=== PATIENT | female | born 1970 | race Caucasian/White ===

== ENCOUNTER 2017-04-12 12:23 | Emergency (ER) | payer OTHER ==
[2017-04-12 12:27] VITALS: BP 124/80; PULSE 71; TEMP 98.3; BMI 32.8
[2017-04-12] MEDS ORDERED: KETOROLAC TROMETHAMINE 30 MG/1 ML VIAL IVPUSH ONE (12:58)
[2017-04-12] MEDS ORDERED: SODIUM CHLORIDE 1,000 ML IV STA (12:58)
--- NOTE | 2017-04-12 13:07 | PDOC ---
History of Present Illness - General History Source: Patient Exam Limitations: No Limitations - History of Present Illness Initial Comments: 04/12/17 13:31 The patient is a 46 year old female with a significant past medical history of anxiety, COPD, current smoker, bipolar disorder, and prior polysubstance abuse who presents to the ED with complaints of chest pain for 5 days. The patient reports a week and a half ago she developed nasal congestion with an associated cough and one day of intermittent loose stools. She states in the last 5 days she developed a persistent reproducible left sided chest pain that is worsened with movement. Patient is concerned for cardiac disease because she has a family history of cardiac problems. Patient denies taking medication for the chest pain. She still reports intermittent cough but overall improved. Denies shortness of breath or palpitations. Denies fevers or chills. Denies headache. Denies abdominal pain, nausea or weakness. Denies focal numbness, tingling, or weakness. Denies any other symptoms. Family hx: The patients mother had stents in place in the 1970s <Luis Meza - Last Filed: 04/12/17 13:31> - General History Source: Patient Exam Limitations: No Limitations <Juan Ortiz - Last Filed: 04/12/17 14:14> - General Chief Complaint: Chest Pain Stated Complaint: CHEST PAIN/ LEFT SIDE SWELLING Time Seen by Provider: 04/12/17 12:37 Past History <Luis Meza - Last Filed: 04/12/17 13:31> - Past Medical History Anemia: Yes Asthma: Yes Cancer: No Cardiac Disorders: Yes (ENDOCARDITIS 2009) CVA: No COPD: Yes CHF: No Dementia: No Diabetes: No GI Disorders: No Disorders: No HTN: No Hypercholesterolemia: Yes Kidney Stones: No Liver Disease: No Psychiatric Problems: Yes (PANIC, AGORAPHOBIA) Suicide Attempt (Hx): Yes (FEW TIMES AT 14, BY TAKING PILLS) Seizures: Yes (DRUG RELATED 2007) Thyroid Disease: No - Surgical History Abdominal Surgery: No Appendectomy: No Cardiac Surgery: No Cholecystectomy: No Lung Surgery: No Neurologic Surgery: No Orthopedic Surgery: No - Reproductive History PID: No - Psycho/Social/Smoking Cessation Hx Anxiety: Yes Suicidal Ideation: No Smoking Status: Yes Smoking History: Current every day smoker Have you smoked in the past 12 months: Yes Number of Cigarettes Smoked Daily: 10 Information on smoking cessation initiated: No 'Breaking Loose' booklet given: 06/20/16 Hx Alcohol Use: No Drug/Substance Use Hx: No Substance Use Type: None Hx Substance Use Treatment: Yes <Juan Ortiz - Last Filed: 04/12/17 14:14> - Past Medical History Allergies/Adverse Reactions: Allergies Allergy/AdvReac Type Severity Reaction Status Date / Time chlorpromazine HCl AdvReac Severe Hives Verified 04/12/17 12:27 [From Thorazine] haloperidol [From Haldol] AdvReac Severe Hives Verified 04/12/17 12:27 haloperidol lactate AdvReac Severe Hives Verified 04/12/17 12:27 [From Haldol] omeprazole [From Prilosec] AdvReac Severe Swelling Verified 04/12/17 12:27 omeprazole magnesium AdvReac Severe Swelling Verified 04/12/17 12:27 [From Prilosec] pentazocine lactate AdvReac Unknown Verified 04/12/17 12:27 [From Talwin] Home Medications: Ambulatory Orders Quetiapine Fumarate [Seroquel] 200 mg PO HS 06/20/16 Alprazolam 2 mg PO QID 04/12/17 Review of Systems - Review of Systems Able to Perform ROS?: Yes Comments:: 04/12/17 13:31 GENERAL/CONSTITUTIONAL: No fever or chills. No weakness. HEAD, EYES, EARS, NOSE AND THROAT: + nasal congestion. No change in vision. No ear pain or discharge. No sore throat. CARDIOVASCULAR: + chest pain No shortness of breath. RESPIRATORY: + cough No wheezing or hemoptysis. GASTROINTESTINAL: + diarrhea. No nausea, vomiting, or constipation. GENITOURINARY: No dysuria, frequency, or change in urination. MUSCULOSKELETAL: No joint or muscle swelling or pain. No neck or back pain. SKIN: No rash NEUROLOGIC: No headache, vertigo, loss of consciousness, or change in strength/ sensation. ENDOCRINE: No increased thirst. No abnormal weight change. HEMATOLOGIC/LYMPHATIC: No anemia, easy bleeding, or history of blood clots. ALLERGIC/IMMUNOLOGIC: No hives or skin allergy. All Other Systems: Reviewed and Negative <Luis Meza - Last Filed: 04/12/17 13:31> *Physical Exam - Vital Signs Last Vital Signs Temp Pulse Resp BP Pulse Ox 98.3 F 71 20 124/80 97 04/12/17 12:24 04/12/17 12:24 04/12/17 12:24 04/12/17 12:24 04/12/17 12:24 - Physical Exam Comments: 04/12/17 13:31 GENERAL: Awake, alert, and fully oriented, in no acute distress HEAD: No signs of trauma EYES: PERRLA, EOMI, sclera anicteric, conjunctiva clear ENT: Auricles normal inspection, hearing grossly normal, nares patent, oropharynx clear without exudates. Moist mucosa NECK: Normal ROM, supple, no lymphadenopathy, JVD, or masses LUNGS: Breath sounds equal, clear to auscultation bilaterally. No wheezes, and no crackles HEART:+ Reproductive left sided chest wall tenderness, movement of left arm reproduces the pain as well. Regular rate and rhythm, normal S1 and S2, no murmurs, rubs or gallops ABDOMEN: Soft, nontender, normoactive bowel sounds. No guarding, no rebound. No masses EXTREMITIES: Normal range of motion, no edema. No clubbing or cyanosis. No cords, erythema, or tenderness NEUROLOGICAL: Cranial nerves II through XII grossly intact. Normal speech, normal gait SKIN: Warm, Dry, normal turgor, no rashes or lesions noted. <Luis Meza - Last Filed: 04/12/17 13:31> - Vital Signs Last Vital Signs Temp Pulse Resp BP Pulse Ox 98.3 F 71 20 124/80 97 04/12/17 12:24 04/12/17 12:24 04/12/17 12:24 04/12/17 12:24 04/12/17 12:24 <Juan Ortiz - Last Filed: 04/12/17 14:14> Heart Score/ECG Review - History History: Slightly suspicious - Electrocardiogram EKG: Normal - Age Age: 45-65 - Risk Factors Risk Factors Heart Score: Yes Smoking History, Yes Positive family hx of cardiac disease, Yes Hx Obesity Based on the list above the patient has:: >/=3 risk factors or Hx atherosclerotic disease - Troponin Troponin: </= normal limit - Score Heart Score - Total: 3 #1 ECG reviewed & interpreted by me at: 12:35 04/12/17 13:19 NSR 65, no std/pradeep, T wave flat III, normal axis, normal intervals, QTC 434 msec <Juan Ortiz - Last Filed: 04/12/17 14:14> ED Treatment Course - LABORATORY CBC & Chemistry Diagram: 04/12/17 13:08 <MezaLuis - Last Filed: 04/12/17 13:31> - LABORATORY CBC & Chemistry Diagram: 04/12/17 13:08 04/12/17 13:08 - RADIOLOGY Radiology Studies Ordered: Category Date Time Status CHEST X-RAY PORTABLE* [RAD] Stat Radiology 04/12/17 12:58 Taken <Juan Ortiz - Last Filed: 04/12/17 14:14> Medical Decision Making - Medical Decision Making 04/12/17 13:20 A portion of this note was documented by scribe services under my direction. I have reviewed the details of the note, within reason, and agree with the documentation with the following case summary and management plan written by me. Patient treated in the ED. Nursing notes are reviewed and incorporated into the medical decision-making. Vital signs reviewed. Peripheral IV access obtained by the nurse, laboratory studies are drawn and sent, reviewed and interpreted by myself. Vital Signs Temp Pulse Resp BP Pulse Ox 98.3 F 71 20 124/80 97 04/12/17 12:24 04/12/17 12:24 04/12/17 12:24 04/12/17 12:24 04/12/17 12:24 46 year old female with past medical history of anxiety, COPD, current smoker, bipolar disorder, prior polysubstance abuse presents with chest pain. The patient states approximately week and a half ago, she had developed nasal congestion, persistent coughing. Patient continues to smoke. She also then had 1 day of intermittent loose stools. She had developed in the last 5 days of persistent reproducible left sided chest pain worsened with movements. Denies shortness of breath. Patient states that she has not taken medications for this pain. She was concerned for cardiac disease. She denies prior history of cardiac disease but does report that her mother had a cardiac stent in her 70s. She still reports intermittent cough but overall improved. Came into the ED for further evaluation. The patient's chest pain that she is describing is reproducible chest pain on the left chest. I suspect that this is likely costochondritis given the persistent coughing and smoking. Her EKG is reassuring and normal. We'll send a troponin though I have low suspicion for acute coronary syndrome. We'll trial Toradol and IV fluids and reassess. Chest x-ray to rule out other causes such as pneumonia. If workup is negative and the patient reports feeling better, we' ll discharge home as costochondritis. 04/12/17 14:12 CBC, BMP 04/12/17 13:08 04/12/17 13:08 CMP Sodium 141 mmol/L (136-145) 04/12/17 13:08 Potassium 4.9 mmol/L (3.5-5.1) 04/12/17 13:08 Chloride 103 mmol/L (98-107) 04/12/17 13:08 Carbon Dioxide 31 mmol/L (21-32) 04/12/17 13:08 Anion Gap 7 (8-16) L 04/12/17 13:08 BUN 10 mg/dL (7-18) D 04/12/17 13:08 Creatinine 0.7 mg/dL (0.55-1.02) 04/12/17 13:08 Creat Clearance w eGFR > 60 (>60) 04/12/17 13:08 Random Glucose 99 mg/dL (74-106) 04/12/17 13:08 Calcium 8.7 mg/dL (8.5-10.1) 04/12/17 13:08 Total Bilirubin 0.6 mg/dL (0.2-1.0) 04/12/17 13:08 AST 35 U/L (15-37) D 04/12/17 13:08 ALT 18 U/L (12-78) D 04/12/17 13:08 Alkaline Phosphatase 79 U/L (45-117) 04/12/17 13:08 Creatine Kinase 158 IU/L (26-192) 04/12/17 13:08 CK-MB (CK-2) 1.04 ng/ml (0.5-3.6) 04/12/17 13:08 Troponin I < 0.02 ng/ml (0.00-0.05) 04/12/17 13:08 Total Protein 7.6 g/dl (6.4-8.2) 04/12/17 13:08 Albumin 3.9 g/dl (3.4-5.0) 04/12/17 13:08 Serum , Qual Negative 04/12/17 13:08 Chest xray reviewed. No acute findings. Again, it's likely costochondritis. Pt already has flexeril at home. Pt on amoxicillin for her tooth infection. I encouraged her to finish up her abx. Supportive care Follow up with PMD I discussed the physical exam findings, ancillary test results and final diagnoses with the patient. I answered all of the patient's questions. The patient was satisfied with the care received and felt comfortable with the discharge plan and treatment plan. The patient will call their primary care physician within 24 hours to arrange follow-up and will return to the Emergency Department with any new, persistant or worsening symptoms. <uJan Ortiz - Last Filed: 04/12/17 14:14> *DC/Admit/Observation/Transfer - Attestations Scribe Attestion: 04/12/17 13:31 Documentation prepared by Luis Meza, acting as medical imaging technologist for Juan Ortiz MD <Luis Meza - Last Filed: 04/12/17 13:31> - Discharge Dispostion Admit: No <Juan Ortiz - Last Filed: 04/12/17 14:14> Diagnosis at time of Disposition: Costochondritis - Discharge Dispostion Disposition: HOME Condition at time of disposition: Stable - Referrals Referrals: Roberto Quiroz MD [Primary Care Provider] - - Patient Instructions Printed Discharge Instructions: DI for Atypical Chest Pain, DI for Costochondritis Additional Instructions: Your chest xray, ECG and blood work is reassuring. It may take several days before your symptoms improve. Rest and drink plenty of fluids. Take 500 mg naproxen every 12 hours as needed for chest pain.
[2017-04-12 13:09] LABS: BASOPHIL 2.1 % (0-2.0); EOSINOPHIL 2.6 % (0-4.5); MCH 20.9 pg (25.7-33.7); MEAN CELL VOLUME 65.5 fl (80-96); MEAN PLT VOLUME 9.9 fl (7.5-11.1); NEUTROPHILS 56.3 % (42.8-82.8); PLATELET COUNT 275 K/MM3 (134-434); WHITE BLOOD COUNT 8.1 K/mm3 (4.0-10.0)
[2017-04-12 13:39] LABS: ALBUMIN 3.9 g/dl (3.4-5.0); ANION GAP 7 (8-16); BILIRUBIN,TOTAL 0.6 mg/dL (0.2-1.0); CALCIUM 8.7 mg/dL (8.5-10.1); CO2 31 mmol/L (21-32); COCKROFT - GAULT 130.1945; CREATININE 0.7 mg/dL (0.55-1.02); GLUCOSE,RANDOM 99 mg/dL (74-106); SGPT/ALT 18 U/L (12-78); TOT PROT 7.6 g/dl (6.4-8.2)
[2017-04-12 13:41] LABS: ALK PHOS 79 U/L (45-117); TROPONIN I < 0.02 ng/ml (0.00-0.05)
[2017-04-12 13:46] LABS: SGOT/AST 35 U/L (15-37)
[2017-04-12] MEDS ORDERED: KETOROLAC TROMETHAMINE 30 MG/1 ML VIAL ONE (13:54)
[2017-04-12 14:53] LABS: HYPOCHROMIA 2+; MICROCYTOSIS 2+; POLYCHROMASIA FEW; TEAR DROP CELLS FEW
--- NOTE | 2017-04-13 10:28 | EKG ---
Test Reason : Blood Pressure : / mmHG Vent. Rate : 065 BPM Atrial Rate : 065 BPM P-R Int : 152 ms QRS Dur : 082 ms QT Int : 418 ms P-R-T Axes : 037 027 043 degrees QTc Int : 434 ms NORMAL SINUS RHYTHM NORMAL ECG NO PREVIOUS ECGS AVAILABLE Confirmed by MD HONEY, VERNELL ([id number]) on 04/13/2017 10:27:47 AM Referred By: Confirmed By:VERNELL MÉNDEZ MD
== END 2017-04-12 14:41 | disposition home or self-care (01) ==
LOC: JER 12:23
PROC: 3E0337Z Introduction of Electrolytic and Water Balance Substance into Peripheral Vein, Percutaneous Approach (ICD-10-PCS; principal; 2017-04-12)
PROC: 3E0333Z Introduction of Anti-inflammatory into Peripheral Vein, Percutaneous Approach (ICD-10-PCS; 2017-04-12)
DX: M94.0 Chondrocostal junction syndrome [Tietze] (principal); F41.9 Anxiety disorder, unspecified; F40.01 Agoraphobia with panic disorder; J44.9 Chronic obstructive pulmonary disease, unspecified; F31.9 Bipolar disorder, unspecified; F17.210 Nicotine dependence, cigarettes, uncomplicated
CPT/HCPCS: 36415; 71010-TC; 80053; 82550; 82553; 84484; 84703; 85025; 93005; 93010; 96361; 96374; 99284-25

== ENCOUNTER 2017-08-20 12:21 | Emergency (ER) | payer OTHER ==
[2017-08-20 12:34] VITALS: BP 136/83; PULSE 63; TEMP 98.3; BMI 31.1
--- NOTE | 2017-08-20 14:20 | PDOC ---
History of Present Illness - General Chief Complaint: Respiratory Stated Complaint: CONGESTED, FEVER Time Seen by Provider: 08/20/17 14:08 - History of Present Illness Initial Comments: 08/20/17 14:20 CHIEF COMPLAINT: cold symptoms HISTORY OF PRESENT ILLNESS: 46 yo F with hx of PTSD, anxiety, COPD, current smoker, bipolar disorder, and prior polysubstance abuse who presents to the ED with complaints of chest pain for 5 days presents with cough, sore throat, fever /chills, and body aches x 3 days. Patient states that she has been feeling "feverish" for the past three days but is not febrile on arrival. No recent travel or sick contacts. PAST MEDICAL HISTORY: Denies past medical history FAMILY HISTORY: Denies SOCIAL HISTORY: hx of polysubstance abuse SURGICAL HISTORY: Denies ALLERGIES: chlorpromazine, haloperidol, omeprazole REVIEW OF SYSTEMS General/Constitutional: Subjective fever, chills. Denies weakness, weight change. HEENT: Sore throat. Denies change in vision. Denies ear pain or discharge. Cardiovascular: Denies chest pain or shortness of breath. Respiratory: Cough with yellow phlegm, denies wheezing. Gastrointestinal: Vomiting yesterday x 2. Denies diarrhea or constipation. Genitourinary: Denies dysuria, frequency, or change in urination. Musculoskeletal: Body aches, "everything hurts. "Denies joint or muscle swelling or pain. Denies neck or back pain. Skin and breasts: Denies rash or easy bruising. Neurologic: Denies headache, vertigo, loss of consciousness, or loss of sensation. PHYSICAL EXAM General Appearance: Well-appearing, appropriately dressed. No apparent distress. HEENT: Nasal congestion, cough. EOMI, PERRLA. No photophobia, scleral icterus. Respiratory/Chest: Lungs CTAB. No shortness of breath, chest tenderness, respiratory distress, accessory muscle use. No crackles, rales, rhonchi, stridor , wheezing, dullness Cardiovascular: RRR. S1, S2. Gastrointestinal/Abdominal: Normal bowel sounds. Abdomen soft, non-distended. No tenderness or rebound tenderness. No organomegaly, pulsatile mass, guarding , hernia, hepatomegaly, splenomegaly. Musculoskeletal/Extremities: Normal inspection. FROM of all extremities, normal capillary refill. Pelvis Stable. No CVA tenderness. No tenderness to extremities, pedal edema, swelling, erythema or deformity. Integumentary: Appropriate color, dry, warm. No cyanosis, erythema, jaundice or rash Neurologic: silk printer II-XII intact. Fully oriented, alert. Appropriate mood/affect. Motor strength 5/5. No appreciable EOM palsy, facial droop or sensory deficit. Past History - Past Medical History Allergies/Adverse Reactions: Allergies Allergy/AdvReac Type Severity Reaction Status Date / Time chlorpromazine HCl AdvReac Severe Hives Verified 08/20/17 12:32 [From Thorazine] haloperidol [From Haldol] AdvReac Severe Hives Verified 08/20/17 12:32 haloperidol lactate AdvReac Severe Hives Verified 08/20/17 12:32 [From Haldol] omeprazole [From Prilosec] AdvReac Severe Swelling Verified 08/20/17 12:32 omeprazole magnesium AdvReac Severe Swelling Verified 08/20/17 12:32 [From Prilosec] pentazocine lactate AdvReac Unknown Verified 08/20/17 12:32 [From Talwin] Home Medications: Ambulatory Orders Quetiapine Fumarate [Seroquel] 200 mg PO HS 06/20/16 Alprazolam 2 mg PO QID 04/12/17 Dextromethorphan HBr [Cough Control] 15 mg PO QID PRN #28 capsule 08/20/17 Divalproex [Depakote -] 125 mg PO BID 08/20/17 Ibuprofen 600 mg PO TID PRN #30 tablet 08/20/17 Anemia: Yes Asthma: Yes Cancer: No Cardiac Disorders: Yes (ENDOCARDITIS 2009) CVA: No COPD: Yes CHF: No Dementia: No Diabetes: No GI Disorders: No Disorders: No HTN: No Hypercholesterolemia: Yes Kidney Stones: No Liver Disease: No Psychiatric Problems: Yes (PANIC, AGORAPHOBIA) Seizures: Yes (DRUG RELATED 2007) Thyroid Disease: No - Surgical History Abdominal Surgery: No Appendectomy: No Cardiac Surgery: No Cholecystectomy: No Lung Surgery: No Neurologic Surgery: No Orthopedic Surgery: No - Reproductive History PID: No - Immunization History Immunization Up to Date: Yes - Suicide/Smoking/Psychosocial Hx Smoking Status: Yes Smoking History: Current every day smoker Have you smoked in the past 12 months: Yes Number of Cigarettes Smoked Daily: 10 Information on smoking cessation initiated: No 'Breaking Loose' booklet given: 06/20/16 Hx Alcohol Use: No Drug/Substance Use Hx: No Substance Use Type: None Hx Substance Use Treatment: Yes Respiratory Specific PMHX - Complaint Specific PMHX TB (Tuberculosis): No *Physical Exam - Vital Signs Last Vital Signs Temp Pulse Resp BP Pulse Ox 98.3 F 63 18 136/83 98 08/20/17 12:32 08/20/17 12:32 08/20/17 12:32 08/20/17 12:32 08/20/17 12:32 ED Treatment Course - RADIOLOGY Radiology Studies Ordered: Category Date Time Status CHEST PA & LAT [RAD] Stat Radiology 08/20/17 14:19 Ordered Medical Decision Making - Medical Decision Making 08/20/17 14:42 46 yo F with hx of PTSD, anxiety, COPD, current smoker, bipolar disorder, and prior polysubstance abuse who presents to the ED with complaints of chest pain for 5 days presents with cough, sore throat, fever/chills, and body aches x 3 days. -Flu, strep swabs -CXR *DC/Admit/Observation/Transfer Diagnosis at time of Disposition: Upper respiratory infection Qualifiers: URI type: unspecified viral URI Qualified Code(s): J06.9 - Acute upper respiratory infection, unspecified; B97.89 - Other viral agents as the cause of diseases classified elsewhere - Discharge Dispostion Disposition: HOME Admit: No - Prescriptions Prescriptions: Dextromethorphan HBr [Cough Control] 15 mg PO QID PRN #28 capsule PRN Reason: Cough Ibuprofen 600 mg PO TID PRN #30 tablet PRN Reason: fever or body aches - Patient Instructions Printed Discharge Instructions: DI for Viral Upper Respiratory Infection -- Adult Additional Instructions: Please take medications as prescribed and follow up with a primary care doctor within the next week. If you develop any chest pain, difficulty breathing, shortness of breath, wheezing, fever unrelieved by Motrin or Tylenol, or any new or worsening symptoms, please return to the ER.
[2017-08-20] MEDS ORDERED: IBUPROFEN 600 MG TABLET (FP) PO ONE ×3 (15:30→15:37)
== END 2017-08-20 15:41 | disposition home or self-care (01) ==
LOC: JERFT 12:21
DX: J06.9 Acute upper respiratory infection, unspecified (principal); B97.89 Other viral agents as the cause of diseases classified elsewhere
CPT/HCPCS: 71020-TC; 87070; 87430; 87804; 99281-25

== ENCOUNTER 2019-04-13 11:58 | Emergency (ER) | payer OTHER ==
--- NOTE | 2019-04-13 12:07 | PDOC ---
Rapid Medical Evaluation Chief Complaint: Urinary Problem Time Seen by Provider: 04/13/19 12:06 Medical Evaluation: Allergies Allergy/AdvReac Type Severity Reaction Status Date / Time chlorpromazine HCl AdvReac Severe Hives Verified 08/20/17 12:32 [From Thorazine] haloperidol [From Haldol] AdvReac Severe Hives Verified 08/20/17 12:32 haloperidol lactate AdvReac Severe Hives Verified 08/20/17 12:32 [From Haldol] omeprazole [From Prilosec] AdvReac Severe Swelling Verified 08/20/17 12:32 omeprazole magnesium AdvReac Severe Swelling Verified 08/20/17 12:32 [From Prilosec] pentazocine lactate AdvReac Unknown Verified 08/20/17 12:32 [From Talwin] 04/13/19 12:06 I have performed a brief in-person evaluation of this patient. The patient presents with a chief complaint of: UTI symptoms x 4 days, hx of UTIs, L abd pain and flank pain, "i took the azo and it made me sick so i vomited," patient states she has appt for obgyn and "specialist" bc i'm always having ovary pain, "i get bad pains on my left side" Pertinent physical exam findings: L CVA tenderness I have ordered the following: urine The patient will proceed to the ED for further evaluation.
[2019-04-13 12:09] VITALS: BP 114/69; PULSE 76; TEMP 98.2; BMI 30.1
[2019-04-13] MEDS ORDERED: SODIUM CHLORIDE 1,000 ML IV SCH (13:45)
[2019-04-13 14:16] LABS: BASO % 1.1 % (0-2.0); EOS % 2.2 % (0-4.5); HEMATOCRIT 35.5 % (32.4-45.2); LYMPH % 28.3 % (8-40); MCH 20.7 pg (25.7-33.7); MCHC 30.9 g/dl (32.0-36.0); MEAN CELL VOLUME 66.7 fl (80-96); MONO % 5.8 % (3.8-10.2); NEUT % 62.6 % (42.8-82.8); PLATELET COUNT 208 K/MM3 (134-434); RBC 5.32 M/mm3 (3.60-5.2); RDW 15.3 % (11.6-15.6); WHITE BLOOD COUNT 9.7 K/mm3 (4.0-10.0)
--- NOTE | 2019-04-13 14:33 | PDOC ---
History of Present Illness - General Chief Complaint: Urinary Problem Stated Complaint: UTI Time Seen by Provider: 04/13/19 12:06 History Source: Patient Exam Limitations: No Limitations - History of Present Illness Initial Comments: 04/13/19 14:34 48 year old woman with a significant past medical history of anxiety, COPD, current smoker, bipolar disorder, ? schizoaffective disorder? and prior polysubstance abuse who presents to the ED with complaints of 3 days of dysuria and L lower back pain that is worse than her chronic back pain. The patient has been using Azo (phenazopyridine) over the counter symptom relief for the past 2 days that has changed the color of her urine. The patient denies fever, hematuria, diarrhea, constipation, vaginal discharge, but states that she still has her menses LNMP 03/16/19. She notes chronic lower pelvic pain for > 3months, constant rated 8/10 but has not changed in quality or intensity than her baseline. She was at a PCP appointment today but decided to come to the ED since she would have had to wait till 1pm to be seen. The patient states she has a diagnosis of shizoaffective and sees a psychiatrist once a month. She has no other complaints at bedside. Past History - Past Medical History Allergies/Adverse Reactions: Allergies Allergy/AdvReac Type Severity Reaction Status Date / Time chlorpromazine HCl AdvReac Severe Hives Verified 08/20/17 12:32 [From Thorazine] haloperidol [From Haldol] AdvReac Severe Hives Verified 08/20/17 12:32 haloperidol lactate AdvReac Severe Hives Verified 08/20/17 12:32 [From Haldol] omeprazole [From Prilosec] AdvReac Severe Swelling Verified 08/20/17 12:32 omeprazole magnesium AdvReac Severe Swelling Verified 08/20/17 12:32 [From Prilosec] pentazocine lactate AdvReac Unknown Verified 08/20/17 12:32 [From Talwin] Home Medications: Ambulatory Orders Quetiapine Fumarate [Seroquel] 200 mg PO HS 06/20/16 Alprazolam 2 mg PO QID 04/12/17 Dextromethorphan HBr [Cough Control] 15 mg PO QID PRN #28 capsule 08/20/17 Divalproex [Depakote -] 125 mg PO BID 08/20/17 Ibuprofen 600 mg PO TID PRN #30 tablet 08/20/17 Cephalexin Monohydrate [Keflex -] 500 mg PO BID 7 Days #14 capsule 04/13/19 Anemia: Yes Asthma: Yes Cancer: No Cardiac Disorders: Yes (ENDOCARDITIS 2009) CVA: No COPD: Yes CHF: No Dementia: No Diabetes: No GI Disorders: No Disorders: No HTN: No Hypercholesterolemia: Yes Kidney Stones: No Liver Disease: No Psychiatric Problems: Yes (PANIC, AGORAPHOBIA) Seizures: Yes (DRUG RELATED 2007) Thyroid Disease: No - Surgical History Abdominal Surgery: No Appendectomy: No Cardiac Surgery: No Cholecystectomy: No Lung Surgery: No Neurologic Surgery: No Orthopedic Surgery: No - Reproductive History PID: No - Immunization History Immunization Up to Date: Yes - Suicide/Smoking/Psychosocial Hx Smoking Status: Yes Smoking History: Never smoked Have you smoked in the past 12 months: Yes Number of Cigarettes Smoked Daily: 10 'Breaking Loose' booklet given: 06/20/16 Hx Alcohol Use: No Drug/Substance Use Hx: No Substance Use Type: None Hx Substance Use Treatment: Yes Review of Systems - Review of Systems Able to Perform ROS?: Yes Comments:: 04/13/19 17:51 GENERAL/CONSTITUTIONAL: No fever or chills. No weakness. HEAD, EYES, EARS, NOSE AND THROAT: No change in vision. No ear pain or discharge. No sore throat. CARDIOVASCULAR: No chest pain or shortness of breath RESPIRATORY: No cough, wheezing, or hemoptysis. GASTROINTESTINAL: No nausea, vomiting, diarrhea or constipation. GENITOURINARY: + dysuria, No frequency, or change in urination. MUSCULOSKELETAL: No joint or muscle swelling or pain. No neck or back pain. SKIN: No rash NEUROLOGIC: No headache, vertigo, loss of consciousness, or change in strength/ sensation. ENDOCRINE: No increased thirst. No abnormal weight change HEMATOLOGIC/LYMPHATIC: No anemia, easy bleeding, or history of blood clots. ALLERGIC/IMMUNOLOGIC: No hives or skin allergy. Is the patient limited [place] proficient: No *Physical Exam - Vital Signs Last Vital Signs Temp Pulse Resp BP Pulse Ox 98.2 F 76 16 114/69 96 04/13/19 12:05 04/13/19 12:05 04/13/19 12:05 04/13/19 12:05 04/13/19 12:05 - Physical Exam Comments: 04/13/19 14:41 GENERAL: Awake, alert, and fully oriented, in no acute distress HEAD: No signs of trauma, normocephalic, atraumatic EYES: EOMI, sclera anicteric, conjunctiva clear ENT: oropharynx clear without exudates. Moist mucosa NECK: Normal ROM, supple LUNGS: No distress, speaks full sentences, clear to auscultation bilaterally HEART: Regular rate and rhythm, normal S1 and S2, no murmurs, rubs or gallops, peripheral pulses normal and equal bilaterally. BACK: No CVA tenderness ABDOMEN: Soft, nontender, normoactive bowel sounds. No guarding, no rebound. No masses EXTREMITIES : Normal inspection, Normal range of motion, no edema. No clubbing or cyanosis. NEUROLOGICAL: Cranial nerves II through XII grossly intact. Normal speech, no focal sensorimotor deficits SKIN: Warm, Dry, normal turgor, no rashes or lesions noted ED Treatment Course - LABORATORY CBC & Chemistry Diagram: 04/13/19 14:00 04/13/19 14:00 - ADDITIONAL ORDERS Additional order review: 04/13/19 14:00 RBC 5.32 H MCV 66.7 L MCHC 30.9 L RDW 15.3 MPV 9.0 Neutrophils % 62.6 Lymphocytes % 28.3 Monocytes % 5.8 Eosinophils % 2.2 Basophils % 1.1 Medical Decision Making - Medical Decision Making 04/13/19 14:40 48 year old woman with a significant past medical history of anxiety, COPD, current smoker, bipolar disorder, ? schizoaffective disorder? and prior polysubstance abuse who presents to the ED with complaints of 3 days of dysuria and L lower back pain that is worse than her chronic back pain. The patient has been using Azo (phenazopyridine) over the counter symptom relief for the past 2 days that has changed the color of her urine. The patient denies fever, hematuria, diarrhea, constipation, vaginal discharge, but states that she still has her menses LNMP 03/16/19. She notes chronic lower pelvic pain for > 3months, constant rated 8/10 but has not changed in quality or intensity than her baseline. She was at a PCP appointment today but decided to come to the ED since she would have had to wait till 1pm to be seen. The patient states she has a diagnosis of shizoaffective and sees a psychiatrist once a month. She has no other complaints at bedside. ED Course: consider UTI vs pyelonephritis vs nephrlithiasis cbc, cmp, ua, ucx upreg patient urine color dark orange, as expected with use of phenazopyridine UTI present wnl labs 04/13/19 15:54 has d/c instruction, abx sent to pharmacy *DC/Admit/Observation/Transfer Diagnosis at time of Disposition: Urinary tract infection - Discharge Dispostion Disposition: HOME Condition at time of disposition: Stable Decision to Admit order: No - Prescriptions Prescriptions: Cephalexin Monohydrate [Keflex -] 500 mg PO BID 7 Days #14 capsule - Referrals Referrals: Roberto Quiroz MD [Primary Care Provider] - - Patient Instructions Printed Discharge Instructions: DI for Urinary Tract Infection (UTI) Additional Instructions: You were seen in the ED for burning with urination. Your labwork showed a urinary tract infection and your were treated with antibiotics in the ED/ A prescription for antibiotics has been sent to your pharmacy and you are to take them twice a day for 7 days. Please stop taking over the counter Azo. Drink plenty of fluids. Return to the ED if you have worsening burning with urination, blood in the urine, fever, nausea, vomiting, abdominal pain or back pain. - Post Discharge Activity
[2019-04-13 14:41] LABS: EPI CELLS 1.5 /HPF (0-5/HPF); HYALINE CASTS 1 /lpf (0-8); URINE APPEARANCE CLOUDY; URINE BACTERIA 1.5 /hpf (NEGATIVE); URINE BILIRUBIN 1+ (NEGATIVE); URINE COLOR ORANGE; URINE GLUCOSE (UA) NEGATIVE (NEGATIVE); URINE KETONE NEGATIVE (NEGATIVE); URINE LEUK ESTERASE 2+ (NEGATIVE); URINE NITRITE POSITIVE (NEGATIVE); URINE PROTEIN NEGATIVE (NEGATIVE); URINE RBC 18 /hpf (0-4); URINE WBC 7 /hpf (0-5)
[2019-04-13 14:43] LABS: ALBUMIN 3.9 g/dl (3.4-5.0); BILIRUBIN,TOTAL 0.5 mg/dL (0.2-1); CALCIUM 8.7 mg/dL (8.5-10.1); CREATININE 0.7 mg/dL (0.55-1.3); POTASSIUM 4.2 mmol/L (3.5-5.1); TOT PROT 7.1 g/dl (6.4-8.2)
[2019-04-13] MEDS ORDERED: CEPHALEXIN 250 MG/5 ML ORAL SUSPENSION PO ONE (14:53)
[2019-04-13 14:59] LABS: YEAST NOT PRESENT (NEGATIVE)
[2019-04-13 15:21] LABS: ANISOCYTOSIS 2+; MACROCYTOSIS 0; OVALOCYTE 2+; PLATELET ESTIMATE NORMAL
--- NOTE | 2019-04-13 15:24 | PDOC ---
Documentation entered by Eli Jefferson SCRIBE, acting as scribe for Kyle Verma MD. Kyle Verma MD: This documentation has been prepared by the Ronny escobedo Adrianna, SCRIBE, under my direction and personally reviewed by me in its entirety. I confirm that the documentation accurately reflects all work, treatment, procedures, and medical decision making performed by me. Attending Attestation - Resident Resident Name: Trisha Griffith - HPI HPI: The patient is a 48 Y F (current smoker and prior polysubstance abuse), with a significant PMH of anxiety, COPD, HLD, schizoaffective disorder, and bipolar disorder, who presents with dysuria and low back pain for 3 days. Patient has been taking Azo for her dysuria and her urine is now orange, but denies hematuria. LMP was one month ago. Patient reports left-sided low back pain which is chronic and her baseline. Allergies: Chlorpromazine, haloperidol, haloperidol lactate, omeprazole, omeprazole magnesium, pentazocine lactate Past surgical history: None reported Social history: No reported PCP: Dr. Roberto Quiroz 04/13/19 15:22 - Physicial Exam PE: 04/13/19 15:23 Patient is awake and alert, well-appearing, in no distress Normocephalic and atraumatic PERRLA, EOMI CTA Abdomen is soft, nontender nondistended, no CVA tenderness bilaterally - Medical Decision Making 04/13/19 15:24 48-year-old female with history of schizoaffective disorder, polysubstance abuse presents with dysuria with urinalysis consistent with nitrite positive pyuria with hematuria likely related to patient's menses. Urine culture obtained. We'll treat with Keflex by mouth. Will discharge.
[2019-04-13] MEDS ORDERED: CEPHALEXIN MONOHYDRATE 500 MG CAPSULE (UD) ONE (15:50)
== END 2019-04-13 16:00 | disposition home or self-care (01) ==
LOC: JER 11:58
DX: N39.0 Urinary tract infection, site not specified (principal); F41.9 Anxiety disorder, unspecified; J44.9 Chronic obstructive pulmonary disease, unspecified; F17.210 Nicotine dependence, cigarettes, uncomplicated; F31.9 Bipolar disorder, unspecified; F25.9 Schizoaffective disorder, unspecified
CPT/HCPCS: 36415; 80053; 81003; 84703; 85025; 87086; 87186; 99281-25

== ENCOUNTER 2020-01-23 11:21 | Emergency (ER) | payer OTHER ==
[2020-01-23 11:41] VITALS: BMI 31.8
[2020-01-23] MEDS ORDERED: SODIUM CHLORIDE 0.9% 500 ML INFUS.BAG IV ONE (13:00)
[2020-01-23] MEDS ORDERED: ACETAMINOPHEN 1000 MG/100 ML VIAL (NON FORMULARY) IVPB ONE (13:01)
--- NOTE | 2020-01-23 13:17 | PDOC ---
History of Present Illness - General Chief Complaint: Rectal Bleed Stated Complaint: RECTAL BLEED Time Seen by Provider: 01/23/20 12:08 History Source: Patient - History of Present Illness Initial Comments: 01/26/20 09:04 49F PMH COPD, BPD, polysubstance abuse, anemia presenting with 4 days of sharp, nonradiating, constant lower abdominal pain with migration to the epigastrium occasionally and black soft stools associated with pain. 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 endorses unintentional weight loss, loss of appetite, and nausea. denies urinary sx. denies straining, no h/o hemorrhoids. PCP had recommended cologuard but pt did not f/u. denies etoh, endorses tobacco. Past History - Past Medical History Allergies/Adverse Reactions: Allergies Allergy/AdvReac Type Severity Reaction Status Date / Time chlorpromazine HCl AdvReac Severe Hives Verified 01/23/20 11:38 [From Thorazine] haloperidol [From Haldol] AdvReac Severe Hives Verified 01/23/20 11:38 haloperidol lactate AdvReac Severe Hives Verified 01/23/20 11:38 [From Haldol] omeprazole [From Prilosec] AdvReac Severe Swelling Verified 01/23/20 11:38 omeprazole magnesium AdvReac Severe Swelling Verified 01/23/20 11:38 [From Prilosec] pentazocine lactate AdvReac Unknown Verified 01/23/20 11:38 [From Talwin] Home Medications: Ambulatory Orders Alprazolam 2 mg PO QID 01/23/20 Cariprazine HCl [Vraylar] 4.5 mg PO BID 01/23/20 D-Amphetamine Sulfate [DEXEDRINE SPANSULE (Nf) -] 5 mg PO TID 01/23/20 Gabapentin 300 mg PO TID 01/23/20 Simvastatin 40 mg PO HS 01/23/20 Anemia: Yes Asthma: Yes Cancer: No Cardiac Disorders: Yes (ENDOCARDITIS 2009) CVA: No COPD: Yes CHF: No Dementia: No Diabetes: No GI Disorders: No Disorders: No HTN: No Hypercholesterolemia: Yes Kidney Stones: No Liver Disease: No Psychiatric Problems: Yes (PANIC, AGORAPHOBIA) Seizures: Yes (DRUG RELATED 2007) Thyroid Disease: No - Surgical History Abdominal Surgery: No Appendectomy: No Cardiac Surgery: No Cholecystectomy: No Lung Surgery: No Neurologic Surgery: No Orthopedic Surgery: No - Reproductive History PID: No - Immunization History Immunization Up to Date: Yes - Psycho Social/Smoking Cessation Hx Smoking Status: Yes Smoking History: Never smoked Have you smoked in the past 12 months: Yes Number of Cigarettes Smoked Daily: 10 Information on smoking cessation initiated: No 'Breaking Loose' booklet given: 06/20/16 Hx Alcohol Use: No Drug/Substance Use Hx: No Substance Use Type: None Hx Substance Use Treatment: Yes Review of Systems - Review of Systems Comments:: 01/26/20 09:04 CONSTITUTIONAL: Denies F / C RESP: Denies SOB, cough, orthopnea, HENDRIX CARD: endorses occasional midsternal chest pain vs epigastric pain. GI: endorses nausea, dark stool, abdominal pain, loss of appetite; denies vomiting : Denies dysuria SKIN: Denies rashes NEURO: Denies numbness, tingling, weakness MSK: endorses chronic back pain *Physical Exam - Vital Signs Last Vital Signs Temp Pulse Resp BP Pulse Ox 98.2 F 86 17 138/78 97 01/23/20 11:38 01/23/20 11:38 01/23/20 11:38 01/23/20 11:38 01/23/20 11:38 - Physical Exam 01/26/20 09:05 GEN: NAD, nontoxic, pale. AAOx3. HEENT: NC/AT. No facial asymmetry. Normal voice. Supple neck w/ FROM. CV: S1/S2, RRR, no m/r/g LUNG: CTAB, no wheezes, crackles, rales, rhonchi. GI: distractable TTP of lower abdomen; Soft, nd, +BS, no guarding, no rebound. RECTAL: Exam chaperoned by LEANDRO Conde. No hemorrhoids, masses, lesions on inspection. no active bleeding or oozing from anus. Normal sphincter tone. No masses or nodules of the rectal vault palpated. No fecal impaction. No blood on glove. MSK: No obvious deformities of all extremities. SKIN: Warm, dry, no rashes appreciated. PSYCH: odd affect, tangential / distracted; anxious NEURO: Moving all extremities well. ED Treatment Course - LABORATORY CBC & Chemistry Diagram: 01/23/20 17:35 01/23/20 13:10 - RADIOLOGY Radiology Studies Ordered: Category Date Time Status ABDOMEN & PELVIS CT WITH CONTR [CT] Stat CT Scan 01/23/20 13:00 Ordered CXRPORT [CHEST X-RAY PORTABLE*] [RAD] Stat Radiology 01/23/20 12:53 Ordered Medical Decision Making - Medical Decision Making 01/23/20 13:03 49F w/ 4 days of lower abdominal pain and black stool w/ h/o chronic NSAID use. Distractable TTP. DDX - LGIB vs UGIB; PUD, malignancy, diverticulosis. - CBC, CMP, Cardiac, Lipase - T&S - EKG, CXR - CT - pain,fluids 01/23/20 15:13 labs reviewed FOBT trace + f/u CT 01/23/20 16:35 CT A/P report reviewed - no acute pathology; colonic diverticulosis plan to dc home w/ pcp and gi f/u 01/23/20 19:05 rpt cbc reviewed and h/h stable patient discharged as above; dc delayed 2/2 me participating in the care of a critical patient. Discharge - Discharge Information Problems reviewed: Yes Clinical Impression/Diagnosis: Abdominal pain Qualifiers: Abdominal location: lower abdomen, unspecified Qualified Code(s): R10.30 - Lower abdominal pain, unspecified Condition: Stable Disposition: HOME - Admission No - Follow up/Referral Referrals: Darren García MD [Primary Care Provider] - Quan Hendrickson DO [Staff Physician] - - Patient Discharge Instructions Patient Printed Discharge Instructions: DI for Abdominal Pain-Adult Additional Instructions: You blood work and CT scan were reassuring; there does not appear to be an evette rgent process occurring. There was trace blood in your stool. We recommend not taking NSAIDs (e.g. motrin, advil, aleve, ibuprofen). Follow up with your Primary Care Doctor in the next 7 days. Follow up with a GI doctor in the next 7 days. We are referring you to a specialist, you can call the number below and schedule an appointment. Return to the nearest Emergency Department if you experience: - fevers - worsening pain - blood in the stool or vomit - anything that concerns you - Post Discharge Activity
[2020-01-23 13:27] LABS: BASO % 2.8 % (0-2.0); EOS % 1.2 % (0-4.5); HEMATOCRIT 33.4 % (32.4-45.2); HEMOGLOBIN 10.5 GM/dL (10.7-15.3); LYMPH % 29.3 % (8-40); MCHC 31.3 g/dl (32.0-36.0); MEAN CELL VOLUME 67.1 fl (80-96); MEAN PLT VOLUME 9.5 fl (7.5-11.1); MONO % 5.6 % (3.8-10.2); NEUT % 61.1 % (42.8-82.8); PLATELET COUNT 261 K/MM3 (134-434); RBC 4.98 M/mm3 (3.60-5.2); RDW 15.2 % (11.6-15.6); WHITE BLOOD COUNT 8.1 K/mm3 (4.0-10.0)
[2020-01-23] MEDS ORDERED: ACETAMINOPHEN INJECTION 100 ML IVPB ONE (13:43)
[2020-01-23 13:56] LABS: ALBUMIN 3.9 g/dl (3.4-5.0); BILIRUBIN,TOTAL 0.5 mg/dL (0.2-1); BLOOD UREA NITROGEN 4.5 mg/dL (7-18); CALCIUM 8.9 mg/dL (8.5-10.1); CREATININE 0.6 mg/dL (0.55-1.3); POTASSIUM 4.5 mmol/L (3.5-5.1); TOT PROT 7.3 g/dl (6.4-8.2)
[2020-01-23 14:19] LABS: PH,URINE 8.5 (5.0-8.0); URINE APPEARANCE CLEAR; URINE BILIRUBIN NEGATIVE (NEGATIVE); URINE COLOR YELLOW; URINE GLUCOSE (UA) NEGATIVE (NEGATIVE); URINE KETONE NEGATIVE (NEGATIVE); URINE LEUK ESTERASE NEGATIVE (NEGATIVE); URINE NITRITE NEGATIVE (NEGATIVE); URINE PROTEIN NEGATIVE (NEGATIVE); URINE UROBILINOGEN 0.2 mg/dL (0.2-1.0)
--- NOTE | 2020-01-23 14:59 | EKG ---
Test Reason : Blood Pressure : / mmHG Vent. Rate : 064 BPM Atrial Rate : 064 BPM P-R Int : 146 ms QRS Dur : 084 ms QT Int : 430 ms P-R-T Axes : 041 040 053 degrees QTc Int : 443 ms NORMAL SINUS RHYTHM NORMAL ECG WHEN COMPARED WITH ECG OF 12-APR-2017 12:33, NO SIGNIFICANT CHANGE WAS FOUND Confirmed by Vinicio Peñaloza ([id number]) on 01/23/2020 2:59:15 PM Referred By: Confirmed By:Vinicio Peñaloza
--- NOTE | 2020-01-23 17:20 | PDOC ---
Documentation entered by Amaya Jefferson SCRIBE, acting as scribe for Bob Bray MD. Bob Bray MD: This documentation has been prepared by the Ronny escobedo Brenda, SCRIBE, under my direction and personally reviewed by me in its entirety. I confirm that the documentation accurately reflects all work, treatment, procedures, and medical decision making performed by me. Attending Attestation - Resident Resident Name: Ronald Gutierrez - ED Attending Attestation I have performed the following: I have examined & evaluated the patient, The case was reviewed & discussed with the resident, I agree w/resident's findings & plan, Exceptions are as noted - HPI HPI: 01/23/20 13:02 The patient is a 48 year old woman with a significant past medical history of anxiety, COPD, current smoker, bipolar disorder and prior polysubstance abuse who presents to the ED for evaluation of 4 days of a sharp lower abdominal pain that radiates to her epigastrium along with occasional black soft stools with a small amoutn of blood at the end of her stool. pt endorses nausea and decreased appetite. pt endorses having 3-4 episodes of tihs loose stool for th past efw days. She ntoes her pain is constant. she denies any fever/chills, cp, sob, dysuria, etoh abuse. Denies any vag dc/bleeding No recent travel or known sick contacts. Allergies: Per EMR Past surgical history: Social history: hx of tobacco use. No alcohol use or illicit drug use. PCP: Raquel - Physicial Exam PE: 01/23/20 17:17 Exam: general: No acute distress Card: rrr, no mrg pulm: cta b/l abd: mild difufse lower abd tenderness, distractible, no focal tendenress, no rebound/guarding, no cva tenderness neuro: ambulatory, no focal weakness on upper/lowre exytremities - Medical Decision Making ddx for the pt sx includes possible gastroenteritsi, colitis, appendicits. labs reviewed and are unremarkble w/o signs of leukocytosis hemaglobin 10. will repeat to trend for stability stol guaiac trace positive ct negative for acut pathology the pts abd exam was reassessed and remains soft and distractible. nor ebound/guarding. suspect her sx may be due to gastroenteritis. will dc with supportive care pmd fu in 2 days and GI fu return precuatiosn were discussed Heart Score/ECG Review - ECG Impressions Comment:: 01/23/20 14:13 Twelve-lead EKG was performed and reviewed by me. There is normal sinus rhythm with a normal rate. Rate of 64 The axis is normal. The intervals are normal. There is normal R wave progression There are no ST or T wave abnormalities. Impression: Normal twelve-lead EKG
[2020-01-23 18:00] LABS: BASO % 1.1 % (0-2.0); EOS % 2.2 % (0-4.5); HEMATOCRIT 33.8 % (32.4-45.2); HEMOGLOBIN 10.4 GM/dL (10.7-15.3); LYMPH % 32.9 % (8-40); MCH 20.7 pg (25.7-33.7); MCHC 30.8 g/dl (32.0-36.0); MEAN CELL VOLUME 67.3 fl (80-96); MEAN PLT VOLUME 9.5 fl (7.5-11.1); MONO % 5.3 % (3.8-10.2); NEUT % 58.5 % (42.8-82.8); PLATELET COUNT 252 K/MM3 (134-434); RBC 5.02 M/mm3 (3.60-5.2); RDW 15.1 % (11.6-15.6); WHITE BLOOD COUNT 9.6 K/mm3 (4.0-10.0)
[2020-01-23 18:45] VITALS: BP 123/76; PULSE 67; TEMP 98
== END 2020-01-23 19:07 | disposition home or self-care (01) ==
LOC: JER 11:21
DX: R10.30 Lower abdominal pain, unspecified (principal); J44.9 Chronic obstructive pulmonary disease, unspecified; D64.9 Anemia, unspecified; J45.998 Other asthma; F31.9 Bipolar disorder, unspecified; F40.01 Agoraphobia with panic disorder; F19.11 Other psychoactive substance abuse, in remission; Z79.1 Long term (current) use of non-steroidal anti-inflammatories (NSAID); Z88.8 Allergy status to other drugs, medicaments and biological substances
CPT/HCPCS: 36415; 71045-TC-FY; 74177-TC; 80053; 81003; 82272; 82550; 83690; 84484; 84703; 85025; 87077; 87086; 93005; 93010; 99285-25; J0131; Q9967

== ENCOUNTER 2022-04-15 12:56 | Emergency (ER) | payer OTHER ==
[2022-04-15 13:35] VITALS: TEMP 99.2; BMI 19.5
[2022-04-15] MEDS ORDERED: LIDOCAINE 5% TOPICAL PATCH TP ONE (14:51)
[2022-04-15] MEDS ORDERED: SODIUM CHLORIDE 0.9% 500 ML INFUS.BAG IV ONE (14:51)
[2022-04-15] MEDS ORDERED: ACETAMINOPHEN 1000 MG/100 ML BAG IVPB ONE (14:51)
[2022-04-15] MEDS ORDERED: ACETAMINOPHEN INJECTION 100 ML IVPB ONE (15:06)
[2022-04-15] MEDS ORDERED: LIDOCAINE 5% TOPICAL PATCH ONE (15:06)
[2022-04-15 16:03] LABS: EPI CELLS 16 /uL (0-25.1); HYALINE CASTS 5 /uL (0-3.1); PH,URINE 5.5 (5.0-8.0); URINE APPEARANCE CLEAR; URINE BACTERIA 7 /uL (0-1359); URINE BILIRUBIN NEGATIVE (NEGATIVE); URINE COLOR DK YELLOW; URINE GLUCOSE (UA) NEGATIVE (NEGATIVE); URINE KETONE TRACE (NEGATIVE); URINE LEUK ESTERASE NEGATIVE (NEGATIVE); URINE NITRITE NEGATIVE (NEGATIVE); URINE PROTEIN TRACE (NEGATIVE); URINE RBC 77 /uL (0-23.9); URINE WBC 9 /uL (0-25.8)
[2022-04-15 16:05] LABS: BASO % 0.7 % (0-2.0); EOS % 0.5 % (0-4.5); HEMATOCRIT 31.5 % (32.4-45.2); HEMOGLOBIN 9.9 GM/dL (10.7-15.3); LYMPH % 28.8 % (8-40); MCH 20.9 pg (25.7-33.7); MCHC 31.5 g/dl (32.0-36.0); MEAN CELL VOLUME 66.2 fl (80-96); MONO % 7.8 % (3.8-10.2); NEUT % 62.2 % (42.8-82.8); PLATELET COUNT 196 10^3/uL (134-434); RBC 4.76 M/mm3 (3.60-5.2); RDW 14.9 % (11.6-15.6); WHITE BLOOD COUNT 10.8 K/mm3 (4.0-10.0)
[2022-04-15 16:34] LABS: CALCIUM 9.5 mg/dL (8.5-10.1)
[2022-04-15 16:35] LABS: ALBUMIN 4.1 g/dl (3.4-5.0); BLOOD UREA NITROGEN 10.8 mg/dL (7-18)
[2022-04-15 16:38] LABS: CREATININE 0.6 mg/dL (0.55-1.3)
[2022-04-15 16:40] LABS: BILIRUBIN,TOTAL 0.8 mg/dL (0.2-1); TOT PROT 7.4 g/dl (6.4-8.2)
[2022-04-15 17:08] LABS: ANISOCYTOSIS 2+; MACROCYTOSIS 2+
[2022-04-15 18:52] VITALS: BP 150/83; PULSE 70
[2022-04-15 20:50] LABS: PLATELET ESTIMATE ADEQUATE
[2022-04-15] MEDS ORDERED: LIDOCAINE PATCH REMOVAL MC SCH (22:00)
== END 2022-04-15 18:53 | disposition home or self-care (01) ==
LOC: JER 12:56
PROC: 3E0333Z Introduction of Anti-inflammatory into Peripheral Vein, Percutaneous Approach (ICD-10-PCS; principal; 2022-04-15)
DX: M95.2 Other acquired deformity of head (principal); G40.89 Other seizures
CPT/HCPCS: 36415; 70450-TC; 71111-TC-FY; 80053; 81003; 85025; 87086; 93005; 93010; 99285-25

== ENCOUNTER 2022-04-19 10:05 | Inpatient (IN) | payer OTHER ==
[2022-04-19] MEDS ORDERED: ACETAMINOPHEN 325 MG TABLET (FP) PO ONE (12:06)
[2022-04-19] MEDS ORDERED: ACETAMINOPHEN 325 MG TABLET (FP) ONE (12:20)
[2022-04-19] MEDS ORDERED: ACETAMINOPHEN 325 MG TABLET (FP) PO PRN (12:50)
[2022-04-19] MEDS ORDERED: diazePAM 5 MG TABLET PO ONE (12:50)
[2022-04-19] MEDS ORDERED: BENZOCAINE/MENTHOL (CHLORASEPTIC ) LOZENGE MM PRN (12:50)
[2022-04-19] MEDS ORDERED: MAGNESIUM CITRATE 300 ML BOTTLE PO PRN (12:50)
[2022-04-19] MEDS ORDERED: DICYCLOMINE HCL 10 MG CAPSULE PO PRN (12:50)
[2022-04-19] MEDS ORDERED: ONDANSETRON *ODT* 4 MG TABLET SL PRN (12:50)
[2022-04-19] MEDS ORDERED: MAG HYDROX/AL HYDROX/SIMETH 30 ML UNIT-DOSE CUP PO PRN (12:50)
[2022-04-19] MEDS ORDERED: NICOTINE 10 MG CARTRIDGE (INHALER) IH PRN (12:50)
[2022-04-19] MEDS ORDERED: MAGNESIUM HYDROX 2400MG/30ML ORAL SUSPENSION 30 ML CUP PO PRN (12:50)
[2022-04-19] MEDS ORDERED: LOPERAMIDE HCL 2 MG CAPSULE PO PRN (12:50)
[2022-04-19] MEDS ORDERED: BISMUTH SUBSALICYLATE 524 MG/30 ML PO PRN (12:50)
[2022-04-19 12:58] VITALS: BMI 21.6
[2022-04-19] MEDS ORDERED: methaDONE HCL 10 MG TABLET PO ONE (13:06)
[2022-04-19] MEDS ORDERED: methaDONE 40 MG, methaDONE 20 MG PO ONE (13:15)
[2022-04-19] MEDS ORDERED: methaDONE HCL 10 MG TABLET ONE (14:37)
[2022-04-19] MEDS ORDERED: methaDONE HCL 40 MG DISPERSABLE TABLET ONE (14:38)
[2022-04-19] MEDS: hydrOXYzine PAMOATE 25 MG CAPSULE (FP) PO SCH ×3 (14:44→22:49)
[2022-04-19] MEDS: LIDOCAINE 5% TOPICAL PATCH TP SCH (14:44)
[2022-04-19] MEDS: METHOCARBAMOL 500 MG TABLET PO PRN (14:44)
[2022-04-19] MEDS: NICOTINE 14 MG/24 HOURS TOPICAL PATCH TD SCH (14:47)
[2022-04-19] MEDS: FERROUS GLUCONATE 324 MG TAB (FP) PO SCH ×2 (15:38→22:49)
[2022-04-19] MEDS: diazePAM 5 MG TABLET PO SCH ×2 (18:20→22:49)
[2022-04-19] MEDS: ACETAMINOPHEN 325 MG TABLET (FP) PO PRN ×2 (18:21→22:52)
[2022-04-19] MEDS: diazePAM 5 MG TABLET PO PRN (20:05)
[2022-04-19] MEDS: THIAMINE HCL 100 MG TABLET (FP) PO SCH (22:49)
[2022-04-19] MEDS: MELATONIN 5 MG TABLETS PO SCH (22:49)
[2022-04-19] MEDS: LIDOCAINE PATCH REMOVAL MC SCH (22:50)
[2022-04-20] MEDS: diazePAM 5 MG TABLET PO SCH ×4 (05:15→22:24)
[2022-04-20] MEDS: hydrOXYzine PAMOATE 25 MG CAPSULE (FP) PO SCH ×5 (05:15→22:24)
[2022-04-20] MEDS: ACETAMINOPHEN 325 MG TABLET (FP) PO PRN ×3 (05:16→18:29)
[2022-04-20] MEDS ORDERED: methaDONE HCL 10 MG TABLET PO ONE (10:03)
[2022-04-20] MEDS ORDERED: methaDONE HCL 40 MG DISPERSABLE TABLET ONE (10:30)
[2022-04-20] MEDS ORDERED: methaDONE HCL 10 MG TABLET ONE (10:30)
[2022-04-20] MEDS: METHOCARBAMOL 500 MG TABLET PO PRN ×2 (10:36→22:24)
[2022-04-20] MEDS: NICOTINE 14 MG/24 HOURS TOPICAL PATCH TD SCH (10:39)
[2022-04-20] MEDS: PRENATAL VITAMINS W/ FOLIC ACID TABLET (FP) PO SCH (10:40)
[2022-04-20] MEDS: LIDOCAINE 5% TOPICAL PATCH TP SCH (10:40)
[2022-04-20 11:16] LABS: HEMATOCRIT 28.8 % (32.4-45.2); HEMOGLOBIN 9.4 GM/dL (10.7-15.3); MCH 21.5 pg (25.7-33.7); MCHC 32.7 g/dl (32.0-36.0); MEAN CELL VOLUME 65.6 fl (80-96); MEAN PLT VOLUME 10.3 fl (7.5-11.1); PLATELET COUNT 228 10^3/uL (134-434); RBC 4.39 M/mm3 (3.60-5.2); RDW 14.9 % (11.6-15.6); WHITE BLOOD COUNT 5.3 K/mm3 (4.0-10.0)
[2022-04-20 11:17] LABS: ALBUMIN 3.6 g/dl (3.4-5.0); CALCIUM 9.1 mg/dL (8.5-10.1)
[2022-04-20 11:18] LABS: BLOOD UREA NITROGEN 10.1 mg/dL (7-18)
[2022-04-20 11:20] LABS: CREATININE 0.6 mg/dL (0.55-1.3)
[2022-04-20 11:22] LABS: TOT PROT 6.4 g/dl (6.4-8.2)
[2022-04-20 11:31] LABS: BILIRUBIN,TOTAL 0.7 mg/dL (0.2-1)
[2022-04-20] MEDS ORDERED: COLLOIDAL OATMEAL 1 BAR EACH TP PRN (12:33)
[2022-04-20] MEDS: FERROUS GLUCONATE 324 MG TAB (FP) PO SCH ×2 (13:41→22:39)
[2022-04-20] MEDS: diazePAM 5 MG TABLET PO PRN (15:09)
[2022-04-20] MEDS: THIAMINE HCL 100 MG TABLET (FP) PO SCH (22:24)
[2022-04-20] MEDS: MELATONIN 5 MG TABLETS PO SCH (22:24)
[2022-04-20] MEDS: LIDOCAINE PATCH REMOVAL MC SCH (22:40)
[2022-04-21] MEDS ORDERED: methaDONE HCL 10 MG TABLET ONE (04:50)
[2022-04-21] MEDS ORDERED: methaDONE HCL 40 MG DISPERSABLE TABLET ONE (04:51)
[2022-04-21] MEDS: diazePAM 5 MG TABLET PO SCH ×3 (05:49→22:16)
[2022-04-21] MEDS: ACETAMINOPHEN 325 MG TABLET (FP) PO PRN ×3 (05:52→21:30)
[2022-04-21] MEDS ORDERED: methaDONE HCL 10 MG TABLET PO SCH (06:00)
[2022-04-21] MEDS: hydrOXYzine PAMOATE 25 MG CAPSULE (FP) PO SCH ×5 (06:16→22:16)
[2022-04-21] MEDS: FERROUS GLUCONATE 324 MG TAB (FP) PO SCH ×2 (11:26→22:16)
[2022-04-21] MEDS: METHOCARBAMOL 500 MG TABLET PO PRN ×2 (11:27→20:43)
[2022-04-21] MEDS: PRENATAL VITAMINS W/ FOLIC ACID TABLET (FP) PO SCH (11:27)
[2022-04-21] MEDS: NICOTINE 14 MG/24 HOURS TOPICAL PATCH TD SCH (11:27)
[2022-04-21] MEDS: LIDOCAINE 5% TOPICAL PATCH TP SCH (11:31)
[2022-04-21] MEDS: MELATONIN 5 MG TABLETS PO SCH (22:16)
[2022-04-21] MEDS: THIAMINE HCL 100 MG TABLET (FP) PO SCH (22:16)
[2022-04-21] MEDS: LIDOCAINE PATCH REMOVAL MC SCH (23:34)
[2022-04-22] MEDS ORDERED: methaDONE HCL 10 MG TABLET ONE (04:11)
[2022-04-22] MEDS ORDERED: methaDONE HCL 40 MG DISPERSABLE TABLET ONE (04:11)
[2022-04-22] MEDS: ACETAMINOPHEN 325 MG TABLET (FP) PO PRN ×2 (06:00→17:50)
[2022-04-22] MEDS: hydrOXYzine PAMOATE 25 MG CAPSULE (FP) PO SCH ×5 (06:00→22:02)
[2022-04-22] MEDS: METHOCARBAMOL 500 MG TABLET PO PRN ×2 (06:00→22:02)
[2022-04-22] MEDS: diazePAM 5 MG TABLET PO SCH ×2 (06:01→17:51)
[2022-04-22] MEDS: FERROUS GLUCONATE 324 MG TAB (FP) PO SCH ×2 (10:02→22:02)
[2022-04-22] MEDS: PRENATAL VITAMINS W/ FOLIC ACID TABLET (FP) PO SCH (10:02)
[2022-04-22] MEDS: NICOTINE 14 MG/24 HOURS TOPICAL PATCH TD SCH (10:03)
[2022-04-22] MEDS: LIDOCAINE 5% TOPICAL PATCH TP SCH (10:04)
[2022-04-22] MEDS: THIAMINE HCL 100 MG TABLET (FP) PO SCH (22:02)
[2022-04-22] MEDS: MELATONIN 5 MG TABLETS PO SCH (22:03)
[2022-04-22] MEDS: LIDOCAINE PATCH REMOVAL MC SCH (22:03)
[2022-04-23] MEDS ORDERED: methaDONE HCL 40 MG DISPERSABLE TABLET ONE (04:24)
[2022-04-23] MEDS ORDERED: methaDONE HCL 10 MG TABLET ONE (04:24)
[2022-04-23] MEDS: ACETAMINOPHEN 325 MG TABLET (FP) PO PRN (05:54)
[2022-04-23] MEDS: hydrOXYzine PAMOATE 25 MG CAPSULE (FP) PO SCH ×2 (05:55→09:52)
[2022-04-23] MEDS ORDERED: diazePAM 5 MG TABLET PO ONE (06:00)
[2022-04-23 06:06] LABS: COCAINE QUALITATIVE URINE Negative ng/mL (Cutoff=300); MARIJUANA QL URINE CANNABINOID Negative ng/mL (Cutoff=50); METHADONE,QUALITATIVE URINE Positive ng/mL (Cutoff=300); OPIATES QL URINE Negative ng/mL (Cutoff=300); PHENCYCLIDINE,QUAL URINE Negative ng/mL (Cutoff=25); PROPOXYPHENE QL URINE Negative ng/mL (Cutoff=300); URINE AMPHETAMINES Negative ng/mL (Cutoff=1000)
[2022-04-23 09:16] VITALS: BP 140/83; PULSE 71; TEMP 97.2
[2022-04-23] MEDS: LIDOCAINE 5% TOPICAL PATCH TP SCH (09:50)
[2022-04-23] MEDS: FERROUS GLUCONATE 324 MG TAB (FP) PO SCH (09:50)
[2022-04-23] MEDS: PRENATAL VITAMINS W/ FOLIC ACID TABLET (FP) PO SCH (09:50)
[2022-04-23] MEDS: NICOTINE 14 MG/24 HOURS TOPICAL PATCH TD SCH (09:52)
== END 2022-04-23 13:12 | disposition home or self-care (01) | DRG 773 ==
LOC: YASAS 10:05 → Y6N 13:38
PROVIDERS: ADMIT Allergy & Immunology; ATTEND Surgery
PROC: HZ2ZZZZ Detoxification Services for Substance Abuse Treatment (ICD-10-PCS; principal; 2022-04-19)
DX: F13.230 Sedative, hypnotic or anxiolytic dependence with withdrawal, uncomplicated (principal); F11.20 Opioid dependence, uncomplicated; F17.210 Nicotine dependence, cigarettes, uncomplicated; F19.280 Other psychoactive substance dependence with psychoactive substance-induced anxiety disorder; F19.282 Other psychoactive substance dependence with psychoactive substance-induced sleep disorder; F31.9 Bipolar disorder, unspecified; D50.9 Iron deficiency anemia, unspecified; E78.5 Hyperlipidemia, unspecified; J43.9 Emphysema, unspecified; Z86.69 Personal history of other diseases of the nervous system and sense organs; Z88.8 Allergy status to other drugs, medicaments and biological substances
CPT/HCPCS: 36415; 80053; 80307; 81025; 82962; 85027; 86780; C9803-CS; Q0162; U0003; U0005

== ENCOUNTER 2022-06-19 14:10 | Inpatient (IN) | payer OTHER ==
[2022-06-19 15:27] VITALS: BMI 22.1
[2022-06-19] MEDS ORDERED: DICYCLOMINE HCL 10 MG CAPSULE PO PRN (18:37)
[2022-06-19] MEDS ORDERED: MAG HYDROX/AL HYDROX/SIMETH 30 ML UNIT-DOSE CUP PO PRN (18:37)
[2022-06-19] MEDS ORDERED: BISMUTH SUBSALICYLATE 524 MG/30 ML PO PRN (18:37)
[2022-06-19] MEDS ORDERED: MAGNESIUM CITRATE 300 ML BOTTLE PO PRN (18:37)
[2022-06-19] MEDS ORDERED: NICOTINE 10 MG CARTRIDGE (INHALER) IH PRN (18:37)
[2022-06-19] MEDS ORDERED: ONDANSETRON *ODT* 4 MG TABLET SL PRN (18:37)
[2022-06-19] MEDS ORDERED: IBUPROFEN 400 MG TABLET (FP) PO PRN (18:37)
[2022-06-19] MEDS ORDERED: ACETAMINOPHEN 325 MG TABLET (FP) PO PRN ×2 (18:37)
[2022-06-19] MEDS ORDERED: BENZOCAINE/MENTHOL (CHLORASEPTIC ) LOZENGE MM PRN (18:37)
[2022-06-19] MEDS ORDERED: LOPERAMIDE HCL 2 MG CAPSULE PO PRN (18:37)
[2022-06-19] MEDS: diazePAM 5 MG TABLET PO PRN (19:22)
[2022-06-19] MEDS: NICOTINE 7 MG/24 HOURS TOPICAL PATCH TD SCH (19:23)
[2022-06-19] MEDS: PRENATAL VITAMINS W/ FOLIC ACID TABLET (FP) PO SCH (19:23)
[2022-06-19] MEDS: IBUPROFEN 600 MG TABLET (FP) PO PRN (19:24)
[2022-06-19] MEDS: METHOCARBAMOL 500 MG TABLET PO PRN (19:24)
[2022-06-19] MEDS: levETIRAcetam 500 MG TABLET (FP) PO SCH (22:23)
[2022-06-19] MEDS: THIAMINE HCL 100 MG TABLET (FP) PO SCH (22:23)
[2022-06-19] MEDS: diazePAM 5 MG TABLET PO SCH (22:23)
[2022-06-19] MEDS: MELATONIN 5 MG TABLETS PO SCH (22:23)
[2022-06-19] MEDS: hydrOXYzine PAMOATE 25 MG CAPSULE (FP) PO SCH (22:23)
[2022-06-20] MEDS: hydrOXYzine PAMOATE 25 MG CAPSULE (FP) PO SCH ×5 (05:39→22:46)
[2022-06-20] MEDS: diazePAM 5 MG TABLET PO SCH ×4 (05:39→22:46)
[2022-06-20] MEDS: IBUPROFEN 600 MG TABLET (FP) PO PRN ×3 (05:39→22:47)
[2022-06-20] MEDS ORDERED: methaDONE HCL 10 MG TABLET PO SCH (09:00)
[2022-06-20 09:38] LABS: HEMATOCRIT 32.2 % (32.4-45.2); HEMOGLOBIN 10.6 GM/dL (10.7-15.3); MCH 21.3 pg (25.7-33.7); MCHC 32.7 g/dl (32.0-36.0); MEAN CELL VOLUME 65.2 fl (80-96); MEAN PLT VOLUME 9.6 fl (7.5-11.1); PLATELET COUNT 185 10^3/uL (134-434); RBC 4.95 M/mm3 (3.60-5.2); RDW 14.6 % (11.6-15.6); WHITE BLOOD COUNT 5.2 K/mm3 (4.0-10.0)
[2022-06-20] MEDS ORDERED: methaDONE HCL 10 MG TABLET ONE (09:38)
[2022-06-20] MEDS ORDERED: methaDONE HCL 40 MG DISPERSABLE TABLET ONE (09:38)
[2022-06-20 10:04] LABS: CALCIUM 9.1 mg/dL (8.5-10.1)
[2022-06-20 10:05] LABS: ALBUMIN 3.6 g/dl (3.4-5.0); BLOOD UREA NITROGEN 12.2 mg/dL (7-18)
[2022-06-20 10:08] LABS: CREATININE 0.7 mg/dL (0.55-1.3)
[2022-06-20 10:10] LABS: BILIRUBIN,TOTAL 0.9 mg/dL (0.2-1); TOT PROT 6.4 g/dl (6.4-8.2)
[2022-06-20] MEDS: NICOTINE 7 MG/24 HOURS TOPICAL PATCH TD SCH (10:41)
[2022-06-20] MEDS: PRENATAL VITAMINS W/ FOLIC ACID TABLET (FP) PO SCH (10:41)
[2022-06-20] MEDS: levETIRAcetam 500 MG TABLET (FP) PO SCH ×2 (10:41→22:46)
[2022-06-20] MEDS: METHOCARBAMOL 500 MG TABLET PO PRN (18:21)
[2022-06-20] MEDS: MELATONIN 5 MG TABLETS PO SCH (22:46)
[2022-06-20] MEDS: MAGNESIUM HYDROX 2400MG/30ML ORAL SUSPENSION 30 ML CUP PO PRN (22:47)
[2022-06-21] MEDS: THIAMINE HCL 100 MG TABLET (FP) PO SCH ×2 (00:20→22:34)
[2022-06-21] MEDS ORDERED: methaDONE HCL 40 MG DISPERSABLE TABLET ONE (04:39)
[2022-06-21] MEDS ORDERED: methaDONE HCL 10 MG TABLET ONE (04:39)
[2022-06-21] MEDS: hydrOXYzine PAMOATE 25 MG CAPSULE (FP) PO SCH ×2 (05:59→10:16)
[2022-06-21] MEDS: diazePAM 5 MG TABLET PO SCH ×3 (05:59→22:35)
[2022-06-21] MEDS: FERROUS SO4 300 MG/5 ML ORAL SOLN UNIT DOSE CUPS PO SCH (08:26)
[2022-06-21] MEDS: IBUPROFEN 600 MG TABLET (FP) PO PRN (10:12)
[2022-06-21] MEDS: diazePAM 5 MG TABLET PO PRN ×2 (10:13→17:58)
[2022-06-21] MEDS: PRENATAL VITAMINS W/ FOLIC ACID TABLET (FP) PO SCH (10:15)
[2022-06-21] MEDS: NICOTINE 7 MG/24 HOURS TOPICAL PATCH TD SCH (10:15)
[2022-06-21] MEDS: levETIRAcetam 500 MG TABLET (FP) PO SCH ×2 (10:16→22:34)
[2022-06-21] MEDS ORDERED: hydrOXYzine PAMOATE 25 MG CAPSULE (FP) PO PRN (12:02)
[2022-06-21] MEDS: NAPROXEN 500 MG TABLET PO SCH ×2 (14:21→22:36)
[2022-06-21] MEDS: METHOCARBAMOL 500 MG TABLET PO PRN (17:58)
[2022-06-21] MEDS: MELATONIN 5 MG TABLETS PO SCH (22:35)
[2022-06-22] MEDS ORDERED: methaDONE HCL 40 MG DISPERSABLE TABLET ONE (04:36)
[2022-06-22] MEDS ORDERED: methaDONE HCL 10 MG TABLET ONE (04:36)
[2022-06-22] MEDS: diazePAM 5 MG TABLET PO SCH ×2 (07:05→18:02)
[2022-06-22] MEDS: FERROUS SO4 300 MG/5 ML ORAL SOLN UNIT DOSE CUPS PO SCH (10:15)
[2022-06-22] MEDS: levETIRAcetam 500 MG TABLET (FP) PO SCH ×2 (10:16→22:52)
[2022-06-22] MEDS: NAPROXEN 500 MG TABLET PO SCH ×2 (10:16→22:52)
[2022-06-22] MEDS: PRENATAL VITAMINS W/ FOLIC ACID TABLET (FP) PO SCH (10:16)
[2022-06-22] MEDS: NICOTINE 7 MG/24 HOURS TOPICAL PATCH TD SCH (10:16)
[2022-06-22] MEDS: MAGNESIUM HYDROX 2400MG/30ML ORAL SUSPENSION 30 ML CUP PO PRN (12:20)
[2022-06-22] MEDS: METHOCARBAMOL 500 MG TABLET PO PRN (18:03)
[2022-06-22] MEDS: MELATONIN 5 MG TABLETS PO SCH (22:52)
[2022-06-22] MEDS: THIAMINE HCL 100 MG TABLET (FP) PO SCH (22:52)
[2022-06-23] MEDS ORDERED: methaDONE HCL 10 MG TABLET ONE (03:51)
[2022-06-23] MEDS ORDERED: methaDONE HCL 40 MG DISPERSABLE TABLET ONE (03:51)
[2022-06-23 05:55] VITALS: RESP 18
[2022-06-23] MEDS ORDERED: diazePAM 5 MG TABLET PO ONE (06:00)
[2022-06-23 09:45] VITALS: BP 135/85; PULSE 70; TEMP 97.1
[2022-06-23] MEDS: levETIRAcetam 500 MG TABLET (FP) PO SCH (10:07)
[2022-06-23] MEDS: NICOTINE 7 MG/24 HOURS TOPICAL PATCH TD SCH (10:08)
[2022-06-23] MEDS: PRENATAL VITAMINS W/ FOLIC ACID TABLET (FP) PO SCH (10:09)
[2022-06-23] MEDS: FERROUS SO4 300 MG/5 ML ORAL SOLN UNIT DOSE CUPS PO SCH (10:57)
[2022-06-23] MEDS: NAPROXEN 500 MG TABLET PO SCH (10:58)
== END 2022-06-23 11:25 | disposition home or self-care (01) | DRG 773 ==
LOC: YASAS 14:10 → Y6N 18:19
PROVIDERS: ADMIT Allergy & Immunology; ATTEND Surgery
PROC: HZ2ZZZZ Detoxification Services for Substance Abuse Treatment (ICD-10-PCS; principal; 2022-06-19)
DX: F13.230 Sedative, hypnotic or anxiolytic dependence with withdrawal, uncomplicated (principal); F11.20 Opioid dependence, uncomplicated; F17.213 Nicotine dependence, cigarettes, with withdrawal; D50.9 Iron deficiency anemia, unspecified; Z28.310 Unvaccinated for COVID-19; Z88.8 Allergy status to other drugs, medicaments and biological substances; Z86.69 Personal history of other diseases of the nervous system and sense organs
CPT/HCPCS: 36415; 80053; 85027; 86780; C9803-CS; U0003; U0005

== ENCOUNTER 2022-06-26 20:49 | Emergency (ER) | payer OTHER ==
[2022-06-26 21:11] VITALS: BP 117/71; PULSE 67; RESP 18; TEMP 98.6; BMI 21.9
[2022-06-26] MEDS ORDERED: morphine CARPU-JECT 2 MG/1 ML DISP.SYRIN IVPUSH ONE (22:23)
[2022-06-26 23:27] LABS: BASO % 1.4 % (0-2.0); HEMATOCRIT 30.6 % (32.4-45.2); HEMOGLOBIN 9.9 GM/dL (10.7-15.3); LYMPH % 43.6 % (8-40); MCHC 32.4 g/dl (32.0-36.0); MEAN CELL VOLUME 64.8 fl (80-96); MEAN PLT VOLUME 9.4 fl (7.5-11.1); MONO % 8.6 % (3.8-10.2); NEUT % 43.4 % (42.8-82.8); PLATELET COUNT 186 10^3/uL (134-434); RBC 4.72 M/mm3 (3.60-5.2); WHITE BLOOD COUNT 7.3 K/mm3 (4.0-10.0)
[2022-06-26 23:30] LABS: EPI CELLS 7 /uL (0-25.1); HYALINE CASTS 0 /uL (0-3.1); PH,URINE 6.5 (5.0-8.0); URINE APPEARANCE CLOUDY; URINE BACTERIA 39 /uL (0-1359); URINE BILIRUBIN NEGATIVE (NEGATIVE); URINE COLOR YELLOW; URINE GLUCOSE (UA) NEGATIVE (NEGATIVE); URINE KETONE NEGATIVE (NEGATIVE); URINE LEUK ESTERASE 1+ (NEGATIVE); URINE NITRITE NEGATIVE (NEGATIVE); URINE PROTEIN NEGATIVE (NEGATIVE); URINE RBC 23 /uL (0-23.9); URINE UROBILINOGEN 0.2 mg/dL (0.2-1.0); URINE WBC 25 /uL (0-25.8)
[2022-06-26] MEDS ORDERED: CEPHALEXIN MONOHYDRATE 500 MG CAPSULE (UD) PO ONE (23:36)
[2022-06-26 23:46] LABS: ANISOCYTOSIS 2+; MACROCYTOSIS 0; OVALOCYTE 1+; TARGET CELLS 1+
[2022-06-26 23:47] LABS: ALBUMIN 4.1 g/dl (3.4-5.0); CALCIUM 9.2 mg/dL (8.5-10.1)
[2022-06-26 23:48] LABS: BLOOD UREA NITROGEN 9.7 mg/dL (7-18)
[2022-06-26 23:50] LABS: CREATININE 0.8 mg/dL (0.55-1.3)
[2022-06-26 23:52] LABS: BILIRUBIN,TOTAL 0.5 mg/dL (0.2-1); TOT PROT 7.1 g/dl (6.4-8.2)
[2022-06-26] MEDS ORDERED: CEPHALEXIN MONOHYDRATE 500 MG CAPSULE (UD) ONE (23:56)
== END 2022-06-27 00:06 | disposition home or self-care (01) ==
LOC: JER 20:49
PROC: 3E033NZ Introduction of Analgesics, Hypnotics, Sedatives into Peripheral Vein, Percutaneous Approach (ICD-10-PCS; principal; 2022-06-26)
DX: N30.00 Acute cystitis without hematuria (principal)
CPT/HCPCS: 36415; 80053; 81003; 83690; 85025; 87077; 87086; 99284-25

== ENCOUNTER 2024-12-03 00:03 | Emergency (ER) | payer OTHER ==
[2024-12-03 00:51] LABS: BASO % 1.1 % (0-2.0); EOS % 3.2 % (0-4.5); HEMATOCRIT 32.7 % (32.4-45.2); HEMOGLOBIN 10.5 GM/dL (10.7-15.3); LYMPH % 21.4 % (8-40); MCH 21.9 pg (25.7-33.7); MEAN CELL VOLUME 68.5 fl (80-96); MEAN PLT VOLUME 9.4 fl (7.5-11.1); MONO % 7.4 % (3.8-10.2); NEUT % 66.9 % (42.8-82.8); PLATELET COUNT 202 10^3/uL (134-434); RBC 4.77 M/mm3 (3.60-5.2); RDW 14.7 % (11.6-15.6); WHITE BLOOD COUNT 6.7 K/mm3 (4.0-10.0)
[2024-12-03 00:56] LABS: INR 1.01 (0.83-1.09); PROTHROMBIN TIME (PATIENT) 11.4 SEC (9.7-13.0)
[2024-12-03 00:59] VITALS: BMI 24.7
[2024-12-03 00:59] LABS: ACTIVATED PTT 44.3 SECONDS (25.2-36.5); POTASSIUM 3.8 mmol/L (3.5-5.1)
[2024-12-03 01:01] LABS: CALCIUM 9.1 mg/dL (8.5-10.1)
[2024-12-03 01:02] LABS: ALBUMIN 4.1 g/dl (3.4-5.0); BLOOD UREA NITROGEN 10.7 mg/dL (7-18); MAGNESIUM 2.2 mg/dL (1.8-2.4)
[2024-12-03 01:05] LABS: CREATININE 0.8 mg/dL (0.55-1.3)
[2024-12-03 01:06] LABS: BILIRUBIN,TOTAL 0.4 mg/dL (0.2-1)
[2024-12-03 01:07] LABS: TOT PROT 7.3 g/dl (6.4-8.2)
[2024-12-03 01:08] LABS: N-TERMINAL BNP 74.4 pg/ml (5-125)
[2024-12-03 03:46] LABS: ANISOCYTOSIS 2+; MACROCYTOSIS 0
[2024-12-03] MEDS ORDERED: ACETAMINOPHEN 325 MG TABLET (FP) ONE (06:16)
[2024-12-03] MEDS: ACETAMINOPHEN 325 MG TABLET (FP) PO ONE ×2 (06:32→09:21)
[2024-12-03] MEDS ORDERED: ALPRAZolam 1 MG TABLET ONE (09:02)
[2024-12-03] MEDS ORDERED: IBUPROFEN 400 MG TABLET (FP) PO ONE (09:02)
[2024-12-03] MEDS: IBUPROFEN 400 MG TABLET (FP) PO ONE (09:07)
[2024-12-03] MEDS: ALPRAZolam 2 MG TABLET PO ONE (09:07)
[2024-12-03 09:14] VITALS: BP 134/84; PULSE 64; RESP 18; TEMP 98.4
== END 2024-12-03 15:45 | disposition home or self-care (01) ==
LOC: JER 00:03
DX: R45.851 Suicidal ideations (principal); R07.9 Chest pain, unspecified; R06.02 Shortness of breath; F41.9 Anxiety disorder, unspecified
CPT/HCPCS: 36415; 71045-TC-FY; 80053; 83735; 83880; 84484; 85025; 85610; 85730; 86850; 86900; 86901; 93005; 93010; 99285-25

== ENCOUNTER 2025-01-27 15:38 | Inpatient (IN) | payer OTHER ==
[2025-01-27 16:28] VITALS: BMI 23.3
[2025-01-27] MEDS ORDERED: BENZONATATE 200 MG CAPSULE PO PRN (17:01)
[2025-01-27] MEDS ORDERED: ONDANSETRON *ODT* 4 MG TABLET SL PRN (17:01)
[2025-01-27] MEDS ORDERED: BENZOCAINE/MENTHOL (CHLORASEPTIC ) LOZENGE MM PRN (17:01)
[2025-01-27] MEDS ORDERED: LOPERAMIDE HCL 2 MG CAPSULE PO PRN (17:01)
[2025-01-27] MEDS ORDERED: BISMUTH SUBSALICYLATE 524 MG/30 ML PO PRN (17:01)
[2025-01-27] MEDS ORDERED: DICYCLOMINE HCL 10 MG CAPSULE PO PRN (17:01)
[2025-01-27] MEDS ORDERED: guaiFENesin 600 MG TABLET.ER (FP) PO PRN (17:01)
[2025-01-27] MEDS ORDERED: IBUPROFEN 400 MG TABLET (FP) PO PRN (17:01)
[2025-01-27] MEDS ORDERED: POLYETHYLENE GLYCOL (HEALTHYLAX) 3350 17 GM PACKET PO PRN (17:01)
[2025-01-27] MEDS ORDERED: MAG HYDROX/AL HYDROX/SIMETH 30 ML UNIT-DOSE CUP PO PRN (17:01)
[2025-01-27] MEDS ORDERED: NALOXONE (NARCAN) HCL 4 MG/0.1 ML SPRAY NS PRN (17:01)
[2025-01-27] MEDS: levETIRAcetam 500 MG TABLET (FP) PO ONE (20:04)
[2025-01-27] MEDS: METHOCARBAMOL 500 MG TABLET PO PRN (20:04)
[2025-01-27] MEDS: THIAMINE 100 MG TABLET PO SCH (22:34)
[2025-01-27] MEDS: MELATONIN 5 MG TABLETS PO SCH (22:34)
[2025-01-27] MEDS: diazePAM 5 MG TABLET PO SCH (22:34)
[2025-01-27] MEDS: IBUPROFEN 600 MG TABLET (FP) PO PRN (22:37)
[2025-01-28] MEDS: hydrOXYzine PAMOATE 25 MG CAPSULE (FP) PO PRN (09:00)
[2025-01-28] MEDS: levETIRAcetam 500 MG TABLET (FP) PO SCH (10:08)
[2025-01-28] MEDS: PRENATAL VITAMINS W/ FOLIC ACID TABLET (FP) PO SCH (10:13)
[2025-01-28 10:14] LABS: HEMATOCRIT 28.8 % (32.4-45.2); HEMOGLOBIN 9.4 GM/dL (10.7-15.3); MCHC 32.5 g/dl (32.0-36.0); MEAN CELL VOLUME 67.6 fl (80-96); MEAN PLT VOLUME 10.7 fl (7.5-11.1); PLATELET COUNT 178 10^3/uL (134-434); RBC 4.26 M/mm3 (3.60-5.2); RDW 15.2 % (11.6-15.6); WHITE BLOOD COUNT 4.7 K/mm3 (4.0-10.0)
[2025-01-28 10:18] LABS: CHLORIDE 104 mmol/L (98-107); POTASSIUM 4.1 mmol/L (3.5-5.1); SODIUM 140 mmol/L (136-145)
[2025-01-28 10:23] LABS: ALBUMIN 3.4 g/dl (3.4-5.0); ANION GAP 4 mmol/L (4-13); BLOOD UREA NITROGEN 10.3 mg/dL (7-18); CO2 32 mmol/L (21-32); GLUCOSE,RANDOM 91 mg/dL (74-106)
[2025-01-28 10:25] LABS: CALCIUM 8.9 mg/dL (8.5-10.1)
[2025-01-28 10:26] LABS: CREATININE 0.6 mg/dL (0.55-1.3); SGOT/AST 16 U/L (15-37); SGPT/ALT 13 U/L (13-61)
[2025-01-28 10:28] LABS: BILIRUBIN,TOTAL 0.7 mg/dL (0.2-1); TOT PROT 6.2 g/dl (6.4-8.2)
[2025-01-28 10:29] LABS: ALK PHOS 57 U/L (45-117)
[2025-01-28] MEDS: methaDONE HCL 10 MG TABLET PO ONE (12:45)
[2025-01-28] MEDS: diazePAM 5 MG TABLET PO PRN (12:46)
[2025-01-28] MEDS: methaDONE 80 MG, methaDONE 20 MG PO SCH (12:46)
[2025-01-28] MEDS: ACETAMINOPHEN 325 MG TABLET (FP) PO PRN (20:29)
[2025-01-28] MEDS: QUEtiapine FUMARATE 100 MG TABLET (FP) PO SCH (22:33)
[2025-01-29] MEDS: diazePAM 5 MG TABLET PO SCH (06:03)
[2025-01-29] MEDS ORDERED: methaDONE HCL 10 MG TABLET PO ONE (08:54)
[2025-01-29] MEDS ORDERED: guaiFENesin 200 MG/10 ML 10 ML UNIT-DOSE CUPS PO PRN (09:22)
[2025-01-29] MEDS: methaDONE 80 MG, methaDONE 20 MG PO ONE (09:32)
[2025-01-29] MEDS: guaiFENesin 600 MG TABLET.ER (FP) PO SCH (09:34)
[2025-01-30] MEDS: diazePAM 5 MG TABLET PO SCH (05:54)
[2025-01-30] MEDS ORDERED: methaDONE HCL 10 MG TABLET PO SCH (09:15)
[2025-01-30] MEDS: methaDONE 80 MG, methaDONE 20 MG PO SCH (09:45)
[2025-01-30] MEDS: MAGNESIUM HYDROX 2400MG/30ML ORAL SUSPENSION 30 ML CUP PO PRN (14:47)
[2025-01-30 19:03] VITALS: BP 133/83; PULSE 67; RESP 16; TEMP 98.2
[2025-01-31] MEDS ORDERED: diazePAM 5 MG TABLET PO ONE (06:00)
== END 2025-01-30 07:45 | disposition home or self-care (01) | DRG 773 ==
LOC: YASAS 15:38 → Y3N 18:16
PROVIDERS: ADMIT Allergy & Immunology; ATTEND Allergy & Immunology
PROC: HZ2ZZZZ Detoxification Services for Substance Abuse Treatment (ICD-10-PCS; principal; 2025-01-27)
DX: F13.230 Sedative, hypnotic or anxiolytic dependence with withdrawal, uncomplicated (principal); F11.20 Opioid dependence, uncomplicated; F14.20 Cocaine dependence, uncomplicated; F17.210 Nicotine dependence, cigarettes, uncomplicated; F19.282 Other psychoactive substance dependence with psychoactive substance-induced sleep disorder; F19.24 Other psychoactive substance dependence with psychoactive substance-induced mood disorder; F41.9 Anxiety disorder, unspecified; D50.9 Iron deficiency anemia, unspecified; Z85.819 Personal history of malignant neoplasm of unspecified site of lip, oral cavity, and pharynx; Z86.69 Personal history of other diseases of the nervous system and sense organs; Z88.8 Allergy status to other drugs, medicaments and biological substances
CPT/HCPCS: 36415; 80053; 80305; 80307; 85027; 86780; 93005; 93010

== ENCOUNTER 2025-02-11 17:17 | Inpatient (IN) | payer OTHER ==
[2025-02-11] MEDS ORDERED: NALOXONE (NARCAN) HCL 4 MG/0.1 ML SPRAY NS PRN (18:17)
[2025-02-11] MEDS ORDERED: BISMUTH SUBSALICYLATE 524 MG/30 ML PO PRN (18:17)
[2025-02-11] MEDS ORDERED: ONDANSETRON *ODT* 4 MG TABLET SL PRN (18:17)
[2025-02-11] MEDS ORDERED: DICYCLOMINE HCL 10 MG CAPSULE PO PRN (18:17)
[2025-02-11] MEDS ORDERED: BENZOCAINE/MENTHOL (CHLORASEPTIC ) LOZENGE MM PRN (18:17)
[2025-02-11] MEDS ORDERED: NICOTINE POLACRILEX 2 MG LOZENGE BC PRN (18:17)
[2025-02-11] MEDS ORDERED: NICOTINE POLACRILEX 2 MG GUM BUC PRN (18:17)
[2025-02-11] MEDS ORDERED: guaiFENesin 600 MG TABLET.ER (FP) PO PRN (18:17)
[2025-02-11] MEDS ORDERED: MAG HYDROX/AL HYDROX/SIMETH 30 ML UNIT-DOSE CUP PO PRN (18:17)
[2025-02-11] MEDS ORDERED: LOPERAMIDE HCL 2 MG CAPSULE PO PRN (18:17)
[2025-02-11] MEDS ORDERED: BENZONATATE 200 MG CAPSULE PO PRN (18:17)
[2025-02-11] MEDS: IBUPROFEN 600 MG TABLET (FP) PO PRN (20:14)
[2025-02-11] MEDS: diazePAM 5 MG TABLET PO ONE (20:14)
[2025-02-11] MEDS: diazePAM 5 MG TABLET PO PRN (20:14)
[2025-02-11 20:16] VITALS: BMI 22.6
[2025-02-11] MEDS: MELATONIN 5 MG TABLETS PO SCH (23:12)
[2025-02-11] MEDS: levETIRAcetam 500 MG TABLET (FP) PO SCH (23:12)
[2025-02-11] MEDS: diazePAM 5 MG TABLET PO SCH (23:12)
[2025-02-11] MEDS: THIAMINE 100 MG TABLET PO SCH (23:12)
[2025-02-11] MEDS: ACETAMINOPHEN 325 MG TABLET (FP) PO PRN (23:15)
[2025-02-11] MEDS: METHOCARBAMOL 500 MG TABLET PO PRN (23:15)
[2025-02-12 09:04] LABS: POTASSIUM 4.2 mmol/L (3.5-5.1)
[2025-02-12 09:29] LABS: ALBUMIN 3.5 g/dl (3.4-5.0); BLOOD UREA NITROGEN 11.9 mg/dL (7-18)
[2025-02-12 09:33] LABS: CREATININE 0.7 mg/dL (0.55-1.3)
[2025-02-12 09:34] LABS: BILIRUBIN,TOTAL 0.5 mg/dL (0.2-1); TOT PROT 6.4 g/dl (6.4-8.2)
[2025-02-12 09:56] LABS: HEMOGLOBIN 9.5 g/dL (11.2-15.7); MCHC 30.6 g/dl (32.2-35.5); MEAN CELL VOLUME 69.2 fl (79.4-94.8); PLATELET COUNT # 217 x10^3/uL (182-369); RDW 14.8 % (12.3-16.6)
[2025-02-12] MEDS ORDERED: methaDONE HCL 10 MG TABLET PO ONE (10:02)
[2025-02-12] MEDS: PRENATAL VITAMINS W/ FOLIC ACID TABLET (FP) PO SCH (10:21)
[2025-02-12] MEDS: methaDONE 80 MG, methaDONE 20 MG PO ONE (10:21)
[2025-02-12] MEDS: IBUPROFEN 400 MG TABLET (FP) PO PRN (10:22)
[2025-02-12] MEDS: QUEtiapine FUMARATE 25 MG TABLET PO SCH (10:28)
[2025-02-12] MEDS ORDERED: ALBUTEROL SO4 HFA INHALER IH PRN (10:44)
[2025-02-12] MEDS: QUEtiapine FUMARATE 100 MG TABLET (FP) PO SCH (22:39)
[2025-02-13] MEDS: diazePAM 5 MG TABLET PO SCH (05:36)
[2025-02-13] MEDS ORDERED: methaDONE HCL 10 MG TABLET PO SCH (07:45)
[2025-02-13] MEDS: methaDONE 80 MG, methaDONE 20 MG PO ONE (07:57)
[2025-02-13] MEDS: LIDOCAINE 5% TOPICAL PATCH TP SCH (10:20)
[2025-02-13] MEDS: POLYETHYLENE GLYCOL (HEALTHYLAX) 3350 17 GM PACKET PO PRN (19:23)
[2025-02-13] MEDS: LIDOCAINE PATCH REMOVAL MC SCH (22:08)
[2025-02-14] MEDS: diazePAM 5 MG TABLET PO SCH (06:03)
[2025-02-14] MEDS: methaDONE 80 MG, methaDONE 20 MG PO SCH (06:03)
[2025-02-14 20:50] VITALS: RESP 16
[2025-02-14] MEDS: MIRTAZAPINE 15 MG TABLET (FP) PO SCH (21:45)
[2025-02-15] MEDS: diazePAM 5 MG TABLET PO ONE (05:31)
[2025-02-15 09:50] VITALS: BP 124/87; PULSE 77; TEMP 97.3
== END 2025-02-15 11:50 | disposition home or self-care (01) | DRG 773 ==
LOC: YASAS 17:17 → Y3N 18:57
PROVIDERS: ADMIT Allergy & Immunology; ATTEND Allergy & Immunology
PROC: HZ2ZZZZ Detoxification Services for Substance Abuse Treatment (ICD-10-PCS; principal; 2025-02-11)
DX: F10.230 Alcohol dependence with withdrawal, uncomplicated (principal); F11.20 Opioid dependence, uncomplicated; F13.20 Sedative, hypnotic or anxiolytic dependence, uncomplicated; F17.210 Nicotine dependence, cigarettes, uncomplicated; F31.9 Bipolar disorder, unspecified; F41.9 Anxiety disorder, unspecified; D50.9 Iron deficiency anemia, unspecified; G40.909 Epilepsy, unspecified, not intractable, without status epilepticus; J44.9 Chronic obstructive pulmonary disease, unspecified; M54.50 Low back pain, unspecified; G89.29 Other chronic pain; Z85.819 Personal history of malignant neoplasm of unspecified site of lip, oral cavity, and pharynx; Z88.8 Allergy status to other drugs, medicaments and biological substances
CPT/HCPCS: 36415; 80053; 80305; 80307; 85027; 87811

== ENCOUNTER 2025-04-18 17:41 | Inpatient (IN) | payer OTHER ==
[2025-04-18 18:21] VITALS: BMI 23.2
[2025-04-18] MEDS ORDERED: MAGNESIUM HYDROX 2400MG/30ML ORAL SUSPENSION 30 ML CUP PO PRN (18:51)
[2025-04-18] MEDS ORDERED: NICOTINE POLACRILEX 2 MG LOZENGE BC PRN (18:51)
[2025-04-18] MEDS ORDERED: ACETAMINOPHEN 325 MG TABLET (FP) PO PRN (18:51)
[2025-04-18] MEDS ORDERED: BENZOCAINE/MENTHOL (CHLORASEPTIC ) LOZENGE MM PRN (18:51)
[2025-04-18] MEDS ORDERED: BENZONATATE 200 MG CAPSULE PO PRN (18:51)
[2025-04-18] MEDS ORDERED: IBUPROFEN 400 MG TABLET (FP) PO PRN (18:51)
[2025-04-18] MEDS ORDERED: LOPERAMIDE HCL 2 MG CAPSULE PO PRN (18:51)
[2025-04-18] MEDS ORDERED: POLYETHYLENE GLYCOL (HEALTHYLAX) 3350 17 GM PACKET PO PRN (18:51)
[2025-04-18] MEDS ORDERED: guaiFENesin 600 MG TABLET.ER (FP) PO PRN (18:51)
[2025-04-18] MEDS ORDERED: NALOXONE (NARCAN) HCL 4 MG/0.1 ML SPRAY NS PRN (18:51)
[2025-04-18] MEDS ORDERED: NICOTINE POLACRILEX 2 MG GUM BUC PRN (18:51)
[2025-04-19] MEDS: IBUPROFEN 600 MG TABLET (FP) PO PRN (02:57)
[2025-04-19] MEDS: MAG HYDROX/AL HYDROX/SIMETH 30 ML UNIT-DOSE CUP PO PRN (02:57)
[2025-04-19] MEDS: MELATONIN 5 MG TABLETS PO SCH (03:15)
[2025-04-19] MEDS: QUEtiapine FUMARATE 25 MG TABLET PO ONE (03:15)
[2025-04-19] MEDS: THIAMINE 100 MG TABLET PO SCH (03:15)
[2025-04-19] MEDS ORDERED: methaDONE HCL 10 MG TABLET PO ONE ×4 (09:06→18:00)
[2025-04-19] MEDS: methaDONE 40 MG, methaDONE 10 MG PO ONE ×3 (09:22→16:19)
[2025-04-19] MEDS: PRENATAL VITAMINS W/ FOLIC ACID TABLET (FP) PO SCH (09:22)
[2025-04-19 11:28] LABS: HEMOGLOBIN 9.2 g/dL (11.2-15.7); MCHC 30.7 g/dl (32.2-35.5); MEAN PLT VOLUME 12.3 fl (9.4-12.3); PLATELET COUNT 226 x10^3/uL (182-369); RDW 14.1 % (12.3-16.6)
[2025-04-19 11:41] LABS: POTASSIUM 3.8 mmol/L (3.5-5.1)
[2025-04-19 11:44] LABS: ALBUMIN 3.3 g/dl (3.4-5.0); CALCIUM 9.3 mg/dL (8.5-10.1)
[2025-04-19 11:45] LABS: BLOOD UREA NITROGEN 12.2 mg/dL (7-18)
[2025-04-19 11:48] LABS: CREATININE 0.7 mg/dL (0.55-1.3)
[2025-04-19 11:49] LABS: BILIRUBIN,TOTAL 0.4 mg/dL (0.2-1)
[2025-04-19] MEDS: LIDOCAINE 5% TOPICAL PATCH TP SCH (16:02)
[2025-04-19] MEDS: GABAPENTIN 100 MG CAPSULE PO SCH (16:02)
[2025-04-19] MEDS: QUEtiapine FUMARATE 25 MG TABLET PO SCH (21:28)
[2025-04-19] MEDS: LIDOCAINE PATCH REMOVAL MC SCH (21:29)
[2025-04-20 07:01] VITALS: RESP 18
[2025-04-20] MEDS: methaDONE 80 MG, methaDONE 20 MG PO SCH ×2 (07:42→13:06)
[2025-04-20] MEDS ORDERED: methaDONE HCL 10 MG TABLET PO SCH (10:00)
[2025-04-20] MEDS: hydrOXYzine PAMOATE 25 MG CAPSULE (FP) PO PRN (11:20)
[2025-04-21 06:51] VITALS: PULSE 69
[2025-04-21] MEDS: methaDONE 80 MG, methaDONE 20 MG PO SCH (10:45)
[2025-04-22 07:09] VITALS: BP 131/81; TEMP 97.5
[2025-04-22] MEDS ORDERED: hydrOXYzine PAMOATE 25 MG CAPSULE (FP) PO PRN (14:42)
[2025-04-22] MEDS: QUEtiapine FUMARATE 25 MG TABLET PO ONE (14:45)
[2025-04-22] MEDS ORDERED: QUEtiapine FUMARATE 100 MG TABLET (FP) PO SCH (22:00)
[2025-04-23] MEDS ORDERED: QUEtiapine FUMARATE 25 MG TABLET PO SCH (10:00)
== END 2025-04-22 14:25 | disposition left against medical advice (07) | DRG 770 ==
LOC: YASAS 17:41 → Y3NR 04-19 01:49 → UNDOADMIN 04-19 01:59 → Y3N 04-19 01:59 → UNDODISIN 04-19 09:38 → Y5N 04-19 12:07
PROVIDERS: ADMIT Psychiatry & Neurology Pain Medicine; ATTEND Psychiatry & Neurology Pain Medicine
PROC: HZ42ZZZ Group Counseling for Substance Abuse Treatment, Cognitive-Behavioral (ICD-10-PCS; principal; 2025-04-19)
DX: F11.20 Opioid dependence, uncomplicated (principal); F13.20 Sedative, hypnotic or anxiolytic dependence, uncomplicated; F14.20 Cocaine dependence, uncomplicated; F17.210 Nicotine dependence, cigarettes, uncomplicated; F31.9 Bipolar disorder, unspecified; F19.282 Other psychoactive substance dependence with psychoactive substance-induced sleep disorder; F19.24 Other psychoactive substance dependence with psychoactive substance-induced mood disorder; F25.9 Schizoaffective disorder, unspecified; F43.10 Post-traumatic stress disorder, unspecified; J44.9 Chronic obstructive pulmonary disease, unspecified; R29.6 Repeated falls; S09.90XA Unspecified injury of head, initial encounter; W19.XXXA Unspecified fall, initial encounter; Y92.238 Other place in hospital as the place of occurrence of the external cause; Z99.89 Dependence on other enabling machines and devices
CPT/HCPCS: 36415; 80053; 80305; 80307; 85027; 86780; G0480

== ENCOUNTER 2025-06-01 13:02 | Inpatient (IN) | payer OTHER ==
[2025-06-01 14:26] VITALS: BMI 21.2
[2025-06-01] MEDS ORDERED: MAG HYDROX/AL HYDROX/SIMETH 30 ML UNIT-DOSE CUP PO PRN (15:07)
[2025-06-01] MEDS ORDERED: BENZOCAINE/MENTHOL (CHLORASEPTIC ) LOZENGE MM PRN (15:07)
[2025-06-01] MEDS ORDERED: MAGNESIUM HYDROX 2400MG/30ML ORAL SUSPENSION 30 ML CUP PO PRN (15:07)
[2025-06-01] MEDS ORDERED: NALOXONE (NARCAN) HCL 4 MG/0.1 ML SPRAY NS PRN (15:07)
[2025-06-01] MEDS ORDERED: guaiFENesin 600 MG TABLET.ER (FP) PO PRN (15:07)
[2025-06-01] MEDS ORDERED: BENZONATATE 200 MG CAPSULE PO PRN (15:07)
[2025-06-01] MEDS ORDERED: NICOTINE POLACRILEX 2 MG GUM BUC PRN (15:07)
[2025-06-01] MEDS ORDERED: POLYETHYLENE GLYCOL (HEALTHYLAX) 3350 17 GM PACKET PO PRN (15:07)
[2025-06-01] MEDS ORDERED: ONDANSETRON *ODT* 4 MG TABLET SL PRN (15:07)
[2025-06-01] MEDS ORDERED: DICYCLOMINE HCL 10 MG CAPSULE PO PRN (15:07)
[2025-06-01] MEDS ORDERED: LOPERAMIDE HCL 2 MG CAPSULE PO PRN (15:07)
[2025-06-01] MEDS ORDERED: BISMUTH SUBSALICYLATE 524 MG/30 ML PO PRN (15:07)
[2025-06-01] MEDS ORDERED: NICOTINE POLACRILEX 2 MG LOZENGE BC PRN (15:07)
[2025-06-01] MEDS: MELATONIN 5 MG TABLETS PO SCH (22:13)
[2025-06-01] MEDS: THIAMINE 100 MG TABLET PO SCH (22:13)
[2025-06-01] MEDS: GABAPENTIN 100 MG CAPSULE PO SCH (22:14)
[2025-06-01] MEDS: METHOCARBAMOL 500 MG TABLET PO PRN (22:14)
[2025-06-02] MEDS: hydrOXYzine PAMOATE 25 MG CAPSULE (FP) PO PRN (03:31)
[2025-06-02] MEDS: PRENATAL VITAMINS W/ FOLIC ACID TABLET (FP) PO SCH (09:34)
[2025-06-02 11:51] LABS: MCHC 29.9 g/dl (32.2-35.5); MEAN CELL VOLUME 69.6 fl (79.4-94.8); MEAN PLT VOLUME 11.9 fl (9.4-12.3); RDW 15.4 % (12.3-16.6)
[2025-06-02 12:21] LABS: CO2 31 mmol/L (21-32); GLUCOSE,RANDOM 105 mg/dL (74-106)
[2025-06-02 12:24] LABS: CREATININE 0.6 mg/dL (0.55-1.3); SGOT/AST 11 U/L (15-37); SGPT/ALT 15 U/L (13-61)
[2025-06-02 12:25] LABS: TOT PROT 6.6 g/dl (6.4-8.2)
[2025-06-02 12:27] LABS: ALK PHOS 72 U/L (45-117)
[2025-06-02] MEDS: FERROUS SO4 325 MG TABLET (FP) PO SCH (15:55)
[2025-06-02] MEDS: DOCUSATE SODIUM 100 MG CAPSULE (FP) PO SCH (15:55)
[2025-06-02] MEDS: IBUPROFEN 600 MG TABLET (FP) PO PRN (17:24)
[2025-06-02] MEDS: ACETAMINOPHEN 325 MG TABLET (FP) PO PRN (22:27)
[2025-06-04] MEDS: IBUPROFEN 400 MG TABLET (FP) PO PRN (07:48)
[2025-06-05 09:37] VITALS: RESP 16
[2025-06-05 13:30] VITALS: BP 121/76; PULSE 64; TEMP 98.2
== END 2025-06-05 14:23 | disposition home or self-care (01) | DRG 773 ==
LOC: YASAS 13:02 → Y3N 17:17 → Y6N 06-03 18:43
PROVIDERS: ADMIT Neuromusculoskeletal Medicine & OMM; ATTEND Family Medicine Addiction Medicine
PROC: HZ2ZZZZ Detoxification Services for Substance Abuse Treatment (ICD-10-PCS; principal; 2025-06-01)
DX: F10.230 Alcohol dependence with withdrawal, uncomplicated (principal); F11.20 Opioid dependence, uncomplicated; F14.20 Cocaine dependence, uncomplicated; F17.210 Nicotine dependence, cigarettes, uncomplicated; F31.9 Bipolar disorder, unspecified; F19.24 Other psychoactive substance dependence with psychoactive substance-induced mood disorder; F41.9 Anxiety disorder, unspecified; D50.9 Iron deficiency anemia, unspecified; K21.9 Gastro-esophageal reflux disease without esophagitis; Z85.819 Personal history of malignant neoplasm of unspecified site of lip, oral cavity, and pharynx
CPT/HCPCS: 36415; 80053; 80305; 80307; 85027; 86780; 93005; 93010